=== PATIENT | female | born 1935 | race Two or more races ===

== ENCOUNTER 2024-06-11 09:39 | Inpatient (IN) | payer MEDICARE, MEDICAID, SELFPAY ==
[2024-06-11] VITALS (21 sets, daily range): BP systolic 170–201; BP diastolic 61–98; PULSE 37–70; RESP 12–20; TEMP 36.2–37.2; O2SAT 92–100; BMI 22.2
--- NOTE | 2024-06-11 10:25 | PD.EDGIBLD ---
ED GI Bleed RME/HPI General Chief complaint: Abdominal Pain Stated complaint: bloody stools Time Seen by Provider: 06/11/24 09:51 Arrival date/time: 06/11/24 09:39 Limitations: no limitations RME / HPI RME / HPI Narrative: DR. GRAYSON MAIN ED EVALUATION: 89 year old female presents to the Emergency Department accompanied by the granddaughter with complaint of rectal bleeding at home intermittently for 1 week. Per granddaughter, the patient's daughter noticed the bleeding this morning and came for further evaluation. Per granddaughter, patient lives at home and they are next door neighbors. Associated symptoms include right-sided abdominal pain, lower back pain, and decreased appetite. PMHx: Parkinson's disease, hypothyroidism, hypertension, osteoporosis, hard of hearing, and dementia. On blood thinners for unknown reason at this time. Social Hx: No tobacco, alcohol, or substance use. PCP is at [facility]. Related Data Home Medications ?Medication ?Instructions ?Recorded ?Confirmed levothyroxine 25 mcg tablet 25 mcg PO QAM 01/15/18 06/18/21 carbidopa 25 mg-levodopa 100 mg 1 tab PO TID 01/02/19 06/18/21 tablet trazodone 100 mg tablet 100 mg PO HS PRN Insomnia 01/02/19 06/18/21 baclofen 5 mg tablet 5 mg PO BID PRN Pain 06/18/21 06/18/21 loratadine 10 mg tablet 10 mg PO QDAY PRN allergies 06/18/21 06/18/21 sertraline 150 mg capsule 150 mg PO QDAY 06/18/21 06/18/21 tramadol 50 mg tablet 50 mg PO BID PRN Pain 06/18/21 06/18/21 Allergies Allergy/AdvReac Type Severity Reaction Status Date / Time No Known Allergies Allergy Verified 06/18/21 09:51 Review of Systems Review of Systems Systems Reviewed: All systems reviewed, normal except as documented Narrative Review of Systems: GEN: No fever, no chills, no weight loss, + decreased appetite EYES: No discharge, no visual changes, no pain HEENT: No ear pain, no congestion, no sore throat PULM: No shortness of breath, no cough, no congestion CV: No chest pain, no dyspnea on exertion, no palpitations GI: No nausea, no vomiting, no diarrhea, + right-sided abdominal pain, no constipation; + rectal bleeding (see HPI) : No frequency, no urgency and no dysuria MUSC/SKEL: No joint pain, + lower back pain SKIN: No rash PSYCH: No hallucinations, no depression HEME/LYMPH: No easy bleeding or bruising tendencies NEURO: No weakness, no headache Past Medical History Past Medical History NEUROLOGIC: Positive Neurological Disorders and Parkinson's Disease CARDIAC: Positive Cardiac Disorders, Hypercholesterolemia and Hypertension RESPIRATORY: Positive Pneumonia GASTROINTESTINAL: Positive Gastrointestinal Disorders (GASTRITIS) MUSCULOSKELETAL: Positive Musculoskeletal Disorders (osteoarthritis) ENDOCRINE: Positive Endocrine Disorders and Hypothyroidism PSYCHO/SOCIAL: Positive Anxiety Surgical History SURGICAL: Positive Abdominal Surgery and Joint Replacement Social History SMOKING STATUS: Never smoker SUBSTANCE USE: does not use ALCOHOL: Never ED Exam General Limitations: Present no limitations General appearance: Present alert and in no apparent distress Head Head exam: Present atraumatic, normocephalic and normal inspection Eye Eye exam: Present normal appearance, PERRL and EOMI ENT ENT exam: Present normal exam, normal oropharynx and mucous membranes moist Neck Neck exam: Present normal inspection, full ROM and trachea midline Chest Chest inspection: Present normal inspection and symmetric chest wall rise Respiratory Respiratory exam: Present normal lung sounds bilaterally Cardiovascular Cardiovascular exam: Present regular rate, normal rhythm and normal heart sounds Abdominal Exam Abdominal exam: Present soft and normal bowel sounds; Absent tenderness, guarding, rebound or rigidity External exam: Present other (There is an external hemorrhoid at the anal verge that measures 1x1 cm that is slightly inflamed but no active bleed; no stools present.) Extremities Exam Extremities exam: Present normal inspection and full ROM Back Exam Back exam: Present normal inspection and full ROM Neurological Exam Neurological exam: Present alert Expanded Neurological Exam Patient oriented to: Present person Speech: Present fluid speech Skin Skin exam: Present warm, dry, intact and normal color Course Quality Measures none Orders Category Date Time Status COVID-19 Screening Questionnaire NOW Care 06/11/24 13:26 Active COVID-19 Screening Questionnaire NOW Care 06/11/24 18:15 Active Quality Assurance Group Leader STAT Care 06/11/24 10:43 Active Continuous Pulse Oximetry NOW Care 06/11/24 10:43 Active Decision to Admit X1 Care 06/11/24 18:15 Active EKG (ED ONLY) *Do not use* NOW Care 06/11/24 11:51 Completed Insert IV STAT Care 06/11/24 10:43 Active NPO NOW Care 06/11/24 10:43 Active Occult Blood,Stool (Nursing) ONCE Care 06/11/24 10:43 Active Consult to Cardiology Stat Cons 06/11/24 13:[address] abdomen pelvis wo con Stat Exams 06/11/24 10:45 Completed CXR [XR chest 1V] Stat Exams 06/11/24 16:08 Completed EKG (ED Only) Stat Exams 06/11/24 11:51 Draft BNP [B-Type Natriuretic Peptide] Stat Lab 06/11/24 13:19 Completed Blood Culture (Lab) Stat Lab 06/11/24 18:06 Ordered CBC Stat Lab 06/11/24 11:14 Completed COVID-19 Antigen (In-House) Stat Lab 06/11/24 Ordered Comprehensive Metabolic Panel Stat Lab 06/11/24 11:14 Completed Influenza A & B Rapid Panel Stat Lab 06/11/24 18:15 Ordered Partial Thromboplastin Time Stat Lab 06/11/24 11:14 Completed Prothrombin Time with INR Stat Lab 06/11/24 11:14 Completed Troponin I Stat Lab 06/11/24 13:19 Completed Urinalysis Stat Lab 06/11/24 16:09 Ordered Acetaminophen Ivpb [Ofirmev Inj] Med 06/11/24 16:49 Discontinued 1,000 mg in 100 ml IV X1 Albuterol/Ipratr Rt Arcelia [Duoneb Rt Arcelia] Med 06/11/24 16:45 Discontinued 3 ml INH X1 ONE Azithromycin Inj [Zithromax Inj] 500 mg Med 06/11/24 18:06 Ordered Sodium Chloride 0.9% 250 ml [Ns] 250 ml IV QDAY Sodium Chloride 0.9% 1000 ml [Ns] 1,000 ml Med 06/11/24 10:43 Discontinued IV 999 mls/hr cefTRIAXone [Rocephin] 2 gm Med 06/11/24 18:07 Ordered SODIUM CHLORIDE 0.9% (Popper) [Ns 0.9% (P)] 50 ml IV QDAY Reevaluation(s) Reevaluation #1: When the nurse was going to discharge the patient. Patient was satting at 85% on room air. Patient was on oxygen here and when taken off she was satting low. Will re-evaluate and cancer the discharge. Time: 16:01 Vital Signs Vital signs: Vital Signs Temperature 98.9 F 06/11/24 09:47 Pulse Rate 57 L 06/11/24 09:47 Respiratory Rate 17 06/11/24 09:47 Blood Pressure 201/73 H 06/11/24 09:47 Pulse Oximetry (%) 92 L 06/11/24 09:47 Oxygen Delivery Method Room Air 06/11/24 09:47 GI Bleed MDM Narrative MDM Narrative:: I, Laura King, am scribing for and in the presence of Dr. Grayson. Patient data External records reviewed:: EMS form Clinical information provided by:: patient, EMS and family (granddaughter) Social determinants that could affect healthcare access:: none Patient has the following chronic illnesses:: Parkinson's disease, hypothyroidism, hypertension, osteoporosis, hard of hearing, and dementia. On blood thinners for unknown reason at this time. How is presenting disease/condition affected by chronic disease/condition?: exacerbated by Evaluation data The following diagnostics were reviewed and interpreted by me:: lab results, radiology exam(s) and EKG tracing(s) Lab and/or radiology exams considered but not ordered:: none Interpretation Summary: EKG#1: EKG at 1154 hours. Interpreted by me: atrial fibrillation with slow ventricular response, rate 36, nonspecific ST-T wave abnormality, QRS duration 86 ms, QT/QTc 512/397, P-R-T axis blank, 21, and -18 RADIOLOGY Procedure(s): CT abdomen pelvis wo con Accession Number(s): [id number] cc: Maged Grayson MD; Sheri JiangC; Yordan Palacios MD~ Examination: CT abdomen and pelvis without contrast. Coronal 3-D reconstructions. Sagittal 2-D reconstructions. Date and time of exam:June 11, 2024 at 1128 hours Comparison June 19, 2021 INDICATIONS: Rectal bleeding today CTDI: vol (mGy): 10.1 DLP: (mGycm): 511 Technique: Axial images of the abdomen have been obtained, 3 mm slice thickness Intravenous contrast material has not been administered. Low dose protocols were performed. One or more of the following dose reduction techniques were used; automated exposure control, adjustment of the mA and/or KV according to patient size, use of iterative reconstruction technique. Findings: The lung bases with small pleural effusions No focal liver or splenic lesion Absent gallbladder No pancreatic mass No renal or ureteral calculi, no hydronephrosis Aorta normal size No pericecal inflammatory change No bowel obstruction No diverticulitis No colonic or rectal wall thickening No bladder mass or bladder calculi IMPRESSION: No renal or ureteral calculi, no hydronephrosis No CT findings of appendicitis bowel obstruction or diverticulitis Consider CTA abdomen pelvis post intravenous contrast follow-up, given the patient's presentation Dictated By: Yordan Palacios MD Medications / Prescriptions Medications or Prescriptions considered but not ordered:: none Medication administrations:: Medication Administration History Azithromycin 500 mg/ Sodium (Chloride) 250 mls @ 250 mls/hr IV QDAY MOE Stop: 06/18/24 18:05 Ceftriaxone Sodium 2 gm/ (Sodium Chloride) 50 mls @ 100 mls/hr IV QDAY MOE Stop: 06/18/24 18:06 Discontinued Medications Albuterol/Ipratropium (Albuterol/Ipratropium (Duoneb) Rt Arcelia 3 Ml Nebu) 3 ml INH X1 ONE Stop: 06/11/24 16:46 Last Admin: 06/11/24 17:29 Dose: 3 ml Documented By: JOSE Sodium Chloride (Ns) 1,000 mls @ 999 mls/hr IV .Q1H1M ONE Stop: 06/11/24 11:43 Last Infusion: 06/11/24 14:27 Dose: Infused Documented By: Admin: 06/11/24 12:22 Dose: 999 mls/hr Documented By: ZAK Acetaminophen (Ofirmev Inj) 1,000 mg in 100 mls @ 250 mls/hr IV X1 ONE Stop: 06/11/24 17:12 Last Infusion: 06/11/24 18:12 Dose: Infused Documented By: Admin: 06/11/24 17:10 Dose: 250 mls/hr Documented By: THO see above Consultations Consultation(s) initiated? (list below): Yes Consultation #1 (Physician, Specialty, Details): Discussed test HPI, PMHx, lab, radiology results and/or management with Dr. Chirinos. Dr. Chirinos thinks it is just a vagal episode that caused bradycardia and recommends discharge to follow as an outpatient. Time: 15:10 Consultation #2 (Physician, Specialty, Details): Discussed test HPI, PMHx, lab, radiology results and/or management with hospitalist. Will admit for further evaluation and management. Accepts patient for admission. Time: 18:05 Diagnosis GI bleed differential diagnosis: hemorrhoids, esophageal varices and gastritis Most likely diagnosis given after review of the tests above:: Rectal bleed External hemorrhoid Anemia Vagal episode with bradycardia, resolved. Hypoxia Admission Indicated Admission indicated?: indicated Admission Request Was there a request for admission?: Yes Admission Attestation Admission request attestation: Discussed case with [] from Hospitalist service regarding admission. Discussed patients ED course, exam findings, labs, and radiology results. The Hospitalist [agrees,declines] to accept the patient for admission. Disposition Plan Disposition Plan: Admit Discharge Plan Plan Patient Disposition: Admit Acute Care w/in Hospital Prescriptions/Referrals Prescriptions/Med Rec: No Action levothyroxine 25 mcg Tablet 25 mcg PO QAM trazodone 100 mg Tablet 100 mg PO HS PRN (Reason: Insomnia) carbidopa-levodopa 25-100 mg Tablet 1 tab PO TID tramadol 50 mg Tablet 50 mg PO BID PRN (Reason: Pain) loratadine 10 mg Tablet 10 mg PO QDAY PRN (Reason: allergies) baclofen 5 mg Tablet 5 mg PO BID PRN (Reason: Pain) sertraline 150 mg Capsule 150 mg PO QDAY Referrals: Sheri Jiang, [facility] [Primary Care Provider] - In 1 week Problem List Clinical Impression: Rectal bleed, External hemorrhoid, Anemia, Vagal bradycardia, Pneumonia, Hypoxia Patient/Caregiver Discharge Instructions Education Materials: ED Anemia Type Not Specified, ED Hemorrhoids Additional Instructions: Please follow-up with your primary care physician within a week. Return to the Emergency Department as needed. Ask your primary for a cardio consult and holter monitor for your bradycardia. Ashok un seguimiento con diez m?dico de cabecera dentro de jorge semana. Regrese al Departamento de Emergencias seg?n sea necesario. P?brendan a diez m?dico de cabecera que le ashok jorge consulta card?[place] y un monitor Holter para diez bradicardia. Print Language: Angolan Stand Alone Forms: Marisabel Award Info., Patient Portal Info Letter
--- NOTE | 2024-06-11 10:45 | XR_ITS ---
Examination: CT abdomen and pelvis without contrast. Coronal 3-D reconstructions. Sagittal 2-D reconstructions. Date and time of exam:June 11, 2024 at 1128 hours Comparison June 19, 2021 INDICATIONS: Rectal bleeding today CTDI: vol (mGy): 10.1 DLP: (mGycm): 511 Technique: Axial images of the abdomen have been obtained, 3 mm slice thickness Intravenous contrast material has not been administered. Low dose protocols were performed. One or more of the following dose reduction techniques were used; automated exposure control, adjustment of the mA and/or KV according to patient size, use of iterative reconstruction technique. Findings: The lung bases with small pleural effusions No focal liver or splenic lesion Absent gallbladder No pancreatic mass No renal or ureteral calculi, no hydronephrosis Aorta normal size No pericecal inflammatory change No bowel obstruction No diverticulitis No colonic or rectal wall thickening No bladder mass or bladder calculi IMPRESSION: No renal or ureteral calculi, no hydronephrosis No CT findings of appendicitis bowel obstruction or diverticulitis Consider CTA abdomen pelvis post intravenous contrast follow-up, given the patient's presentation
[2024-06-11 11:27] LABS: Basophils % (Auto) 1 % (0-2.5); Eosinophils # (Auto) 0.1 Thou/mm3 (0.0-0.5); Eosinophils % (Auto) 2 % (0-10); Hematocrit 37.2 % (36.0-46.0); Hemoglobin 11.9 g/dL (12.0-16.0); Immature Granulocytes % (Auto) 0 % (0-0); Immature Granulocytes Auto 0.01 Thou/mm3 (0.00-0.00); Lymphocytes # (Auto) 1.4 Thou/mm3 (1.0-4.8); Lymphocytes % (Auto) 24 % (10-50); Mean Corpuscular Hemoglobin 26.9 pg (25.0-35.0); Mean Corpuscular Volume 84 fL (80-100); Monocytes # (Auto) 0.4 Thou/mm3 (0.0-0.8); Monocytes % (Auto) 7 % (0-12); Neutrophils # (Auto) 3.9 Thou/mm3 (1.8-7.7); Neutrophils % (Auto) 67 % (37-80); Nucleated Red Blood Cell % 0 /100 WBC (0); Platelet Count 226 Thou/mm3 (140-440); RDW Standard Deviation 47.8 fL (36.4-46.3); Red Blood Count 4.42 Miln/mm3 (4.00-5.20); White Blood Count 5.8 Thou/mm3 (3.6-11.0)
[2024-06-11 11:46] LABS: Alanine Aminotransferase < 7 U/L (10-49); Albumin, Serum 4.1 gm/dL (3.4-4.8); Albumin/Globulin Ratio 1.5 (1.2-2.2); Alkaline Phosphatase 80 U/L (46-116); Anion Gap 5 (7-16); Aspartate Amino Transferase 30 U/L (0-34); BUN/Creatinine Ratio 18 Ratio (12-20); Bilirubin,Total 0.5 mg/dL (0.3-1.2); Blood Urea Nitrogen 11 mg/dL (9-23); Calcium 9.3 mg/dL (8.3-10.6); Calcium (Corrected) 9.3 mg/dL (8.5-10.1); Carbon Dioxide 30.7 mMol/L (20.0-31.0); Chloride 102 mMol/L (98-107); Creatinine (Component) 0.6 mg/dL (0.6-1.3); Estimated Creatinine Clearance 53.6 mL/min (>60); Globulin 2.8 gm/dL (2.3-3.5); Glucose 126 mg/dL (74-106); INR 1.1 (0.9-1.3); Osmolality,Calculated 277 (275-295); Partial Thromboplastin Time 26.3 Seconds (22.0-36.0); Potassium 3.5 mMol/L (3.4-5.1); Prothrombin Time 12.1 Seconds (9.0-12.2); Sodium 138 mMol/L (136-145); Total Protein 6.9 gm/dL (5.7-8.2); eGFR > 60 See Note
--- NOTE | 2024-06-11 11:51 | EKG_ITS ---
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
--- NOTE | 2024-06-11 12:16 | PC.NURSE ---
pT WAS PLACED ON PADS PER DR GRAYSON REQUEST PT HR DROPPED TO HR 33 CARDIALOGY CONSULT WILL BE ORDERED DAUGHTER AT BEDSIDE MADE AWARE OF UPDATED POC AND VERBALIZED UNDERSTANDING WITH THIS MIGRATORY WORKER AN INTREPETER
[2024-06-11] MEDS: SODIUM CHLORIDE 0.9% 1000 ML 1,000 ML 999 ML IV (12:22)
[2024-06-11 14:03] LABS: B-Type Natriuretic Peptide 198 pg/mL (0-100)
[2024-06-11 14:04] LABS: Troponin I < 0.020 ng/mL (0.0-0.045)
--- NOTE | 2024-06-11 14:39 | ESCONSULT_ITS ---
<Statement entered by Yisel Chirinos MD - 06/13/24 18:10> The patient is personally evaluated by me in the emergency room along with resident physician PGY 2 Dr. Rody Dunn MD agree with the treatment plan recommendation patient has bradycardia but asymptomatic and appears to be on low-dose beta-estevan which should be discontinued she has A-fib with slower heart rate may be sick sinus syndrome but if she has significant bradycardia symptomatic may require pacemaker implantation by . Very much evaluate the patient with resident physician will continue to monitor the patient HPI Data of Consult Primary Care Provider: HARRIET Coyle Consult Narrative Reason for consult: Severe bradycardia History of present illness: Patient is a 89-year-old Cuban-speaking [id number] female with past medical history of right acoustic neurinoma, Parkinson's disease, hypothyroidism, hypertension, hyperlipidemia, gastritis, osteoporosis, and dementia who presented to the ED on 06/11/2024 with concern of bright red blood in the stools for the past 3 days and abdominal pain. History provided by granddaughter at the bedside as patient is unable to reliably answer questions due to dementia. Patient is able to read lips sometimes and read simple writing in Cuban. Patient is on Eliquis 5 mg once daily, was previously on 5 mg BID but was reduced by PCP due to rectal bleeding. It is unknown why patient is on anticoagulant, granddaughter mentions clot in the head but unclear whether this is related to the neuroma or a stroke-like event. Patient was never on aspirin or Plavix. Patient is endorsing right-sided abdominal pain and lower back pain. Patient does have a history of hemorrhoids which have intermittent bleeding. Family noted she has also had reduced appetite over the last few days only drinking Pedialyte and increased weakness, normally patient is ambulatory but over the last few days she was unable to get up from sitting by herself. She lives at home with her and daughter lives next door. Per granddaughter patient was found to have low HR at the [facility] where she follows for primary care and had been referred to a platen press feeder but has not seen one yet. ED Course: -Initial vitals were BP 201/73, HR 57, RR 17, Temp 98.9, O2 92% on room air -EKG showed bradycardia at a rate of 36 -Abdomen/pelvis CT without contrast showed no acute findings -Labs significant for normocytic anemia 11.9, troponin <0.020, BNP 198 -In the ED, patient was given 1L NS IVF, pacing pads were also placed on patient in case need of pacing -Cardiology was consulted for severe bradycardia Review of Systems Review of systems otherwise negative except what is mentioned above. cc:: cc: Past Medical History Past Medical History Comments PMH COMMENT: Past Medical History: Right acoustic neurinoma, Parkinson's disease, hypothyroidism, hypertension, hyperlipidemia, gastritis, osteoporosis, and dementia Family History: Family history of cancer and diabetes, sister passed from [place] Surgical History: Cholecystectomy, right knee surgery, esophageal ring s/p dilation 2018 Social History: Denies history of smoking, denies current alcohol use, denies recreational drug use. Patient lives at home with . Daughter's family lives next door. Current Medications: Eliquis 5 mg once qday, metoprolol 12.5 mg qday, levothyroxine 25 mcg qday, carbadopa-levodopa 25-100 mg TID, losartan 100 mg qday, atorvastatin 80 mg HS, oxybutynin 5 mg qday, sertraline 50 mg qday, trazodone 100 mg HS, quetiapine 25 mg HS, hydrocodone-acetaminophen 5-325 mg BID prn pain (Source: Bedside medication bottles) Allergies: No known drug allergies Exam Vital Signs Temp Pulse Resp BP Pulse Ox O2 Del Method O2 Flow Rate 98 F 40 L 18 176/98 H 100 Nasal Cannula 6 06/11/24 10:45 06/11/24 10:45 06/11/24 10:45 06/11/24 10:45 06/11/24 10:45 06/11/24 10:45 06/11/24 10:45 Narrative Exam Physical Exam General: Elderly female, awake and in no acute distress, non-toxic appearing. Unable to hear, but vocalizing in Cuban. Answers simple questions written on paper. HEENT: Normocephalic, atraumatic, mucous membranes moist. On 2L NC. Heart: Bradycardic rate and irregular rhythm, normal S1 and S2, no murmurs. Lungs: Clear to auscultation with no wheezing or crackles. Abdomen: Soft, nondistended, tenderness to palpation right abdomen however refusing further examination. Neurologic: Oriented to self, no gross neurological deficit, and patient able to move all 4 extremities. Extremities: No edema. Skin: No rash or ecchymoses. Results Labs 06/11/24 11:14 06/11/24 11:14 Labs: Short CBC 06/11/24 Range/Units 11:14 WBC 5.8 (3.6-11.0) Thou/mm3 Hgb 11.9 L (12.0-16.0) g/dL Hct 37.2 (36.0-46.0) % Plt Count 226 (140-440) Thou/mm3 BMP 06/11/24 11:14 Sodium 138 Potassium 3.5 Chloride 102 Carbon Dioxide 30.7 BUN 11 Creatinine 0.6 Glucose 126 H Calcium 9.3 Cardiac Enzymes 06/11/24 Range/Units 13:19 Troponin I < 0.020 (0.0-0.045) ng/mL Liver Function 06/11/24 Range/Units 11:14 Total Bilirubin 0.5 (0.3-1.2) mg/dL AST 30 (0-34) U/L ALT < 7 L (10-49) U/L Alkaline Phosphatase 80 (46-116) U/L Albumin 4.1 (3.4-4.8) gm/dL Quality Measures Quality Measures none Advance care planning discussed with:: patient and child Medications Home Medications and Allergies Home Medications ?Medication ?Instructions ?Recorded ?Confirmed ?Type levothyroxine 25 mcg tablet 25 mcg PO QAM 01/15/18 History carbidopa 25 mg-levodopa 100 mg 1 tab PO TID 01/02/19 06/18/21 History tablet trazodone 100 mg tablet 100 mg PO HS PRN Insomnia 06/18/21 History baclofen 5 mg tablet 5 mg PO BID PRN Pain 2 06/18/21 History loratadine 10 mg tablet 10 mg PO QDAY PRN allergies 06/18/21 06/18/21 History sertraline 150 mg capsule 150 mg PO QDAY 06/18/2105/23 History tramadol 50 mg tablet 50 mg PO BID PRN Pain 06/18/21 History Allergies Allergy/AdvReac Type Severity Reaction Status Date / Time No Known Allergies Allergy Verified 06/18/21 09:51 Visit Medications Discontinued Medications Sodium Chloride (Ns) 1,000 mls @ 999 mls/hr IV .Q1H1M ONE Stop: 06/11/24 11:43 Last Infusion: 06/11/24 14:27 Dose: Infused Assessment & Plan Plan 89-year-old Cuban-speaking [id number] female with past medical history of right acoustic neurinoma, Parkinson's disease, hypothyroidism, hypertension, hyperlipidemia, gastritis, osteoporosis, and dementia who presented to the ED on 06/11/2024 with concern of bloody stools for the past 3 days and abdominal pain. In the ED patient was found to have severe bradycardia and Cardiology was consulted for further management. #Severe bradycardia Patient found in the ED to have bradycardia as low as 33. EKG showed afib with slow ventricular response. BP remained stable, patient is hypertensive. Troponin negative. BNP mildly elevated at 198. Patient is not on O2 and does appear to be requiring 2L O2. Differentials include vasovagal versus sick sinus syndrome versus beta-estevan overdose. At this time pacing and pacemaker is not indicated as the patient is not symptomatic from the bradycardia. -Hold home metoprolol 12.5 mg qday -Hold Eliquis due to recent concern of rectal bleeding -Patient may be discharged from a cardiac standpoint, following with cardiology appointment as scheduled -Consider CXR, TSH for workup Rest of conditions to continue current management per primary team: #Lower GI bleed, possibly from hemorrhoids #History of Parkinson's disease #History of hypothyroidism #History of hypertension #History of hyperlipidemia Patient was discussed with the Cardiology attending, Dr. Chirinos. Thank you for allowing us to participate in the care of this patient. Brigida Dunn, PGY-2
--- NOTE | 2024-06-11 15:59 | PC.NURSE ---
PT WAS PLACED ON RA TO GET DRESSED FOR DISCHARGED AND THIS BOTTOM MAN NOTED PT OXYGEN SATURATIONS DECREASED TO 79% ON RA MD NOTIFIED AND ADDITIONAL ORDERS RECEIVED
--- NOTE | 2024-06-11 16:08 | XR_ITS ---
Examination: AP chest single view Technique: AP portable upright chest single view Exam date and time: June 11, 2024 1624 hrs. Comparison June 10, 2021 Indication: Chest pain shortness of breath today Findings: Early pneumonia at the lung bases Mild prominence of ventricle Ectatic thoracic aorta Prominent osteopenia Impression: Early bibasilar pneumonia
[2024-06-11] MEDS: ACETAMINOPHEN IVPB 1,000 MG/100 ML VIAL 250 MG IV (17:10)
[2024-06-11] MEDS: ALBUTEROL/IPRATROPIUM (Duoneb) RT SOL 3 ML NEBU INH (17:29)
--- NOTE | 2024-06-11 18:38 | EVENTNT_ITS ---
Documentation for date of: 06/11/24 Event Note Event Note: Miss Kim a 89-year-old Bruneian-speaking [id number] female with significant medical history of right acoustic neurinoma, Parkinson's disease, hypothyroidism, hypertension, hyperlipidemia, gastritis, osteoporosis, and dem entia who presented to the ED with concern of bright red blood in the stools for the past 3 days and abdominal pain. Patient is taking Eliquis, most likely due for Afib, she is also on Metoprolol. ED lab indicated stable HgB, occult was negative per ED. Vitals were significant for BP 201/73, trops negative, BNP 198. EKG indicative of Afib. Abdomen/pelvis CT was unremarkable, chest X-ray showed early bibasilar pneumonia. Patient had and episode of syncope in ED and cardiology was consulted. Per cardio, patient had vasovagal syncope and required outpatient follow-up. Patient was to be discharged but was found to be hypoxic, requiring 3L of O2 to maintain mid-90's saturation. Primary team examined the patient in ED, we will let night team know. We recommend, DuoNebs, IV Rocephin, IV Azithro, withholding beta-estevan in setting of bradycardia, Echocardiogram (last report 2021 with EF 50-55%), TSH, restart home BP meds, Hydralazine IV PRN for SBP > 170. Gutierrez Leigh PGY-2
[2024-06-11] MEDS: cefTRIAXone 2 GM in SODIUM CHLORIDE 0.9% (Popper) 50 ML IV (18:41)
--- NOTE | 2024-06-11 20:20 | PD.RESHP ---
Documentation for date of: 06/11/24 [facility] History of Present Illness Chief complaint: blood in the stool History of present illness: The patient is a 89 year old female with previous medical history of right acoustic neurinoma, Parkinson's disease, hypothyroidism, hypertension, hyperlipidemia, gastritis, osteoporosis, and dementia who was brought to the ED on 06/11/2024 due to abdmoninal pain, bright red blood in her stool. Communication was performed using [facility] branch coordinator. Her daughter at the bedside, reports that a few days ago patient started to have abdominal pain, bright red blood in the stool, general weakness, loss of appetite. They went to the PCP and were sent to the ED due to bradycardia. In the ED: BP 201/73, HR 57, afebrile, saturating 92% on room air. Labs showed WBC count of 5.8, Hgb 11.9, Hct 37.2, Platelet 226, INR 1.1, sodium 138, potassium 3.5, BUN 11, creatinine 0.6, glucose 126, AST 30, ALT less than 7, alkaline phosphatase 80, BNP 198. Abdomen pelvis CT was negative for appendicitis, bowel obstruction or diverticulitis, negative for nephrolithiasis. Chest x-ray showed early bibasilar pneumonia. In the ED patient had heart rate of 36, recorded on EKG. Gang Rider Dr. Chirinos was consulted, recommended to hold metoprolol and Eliquis. Patient was about to be discharged from the ED, but desatted to 79% on room air, was placed on oxygen through the nasal cannula 2 L, saturation went up to 98%. Due to patient's dimension and hearing loss it is hard to take history, family mostly communicates with her using writing. When asked writing it the patient feels dizziness, patient was not able to answer. Social history: Lives with her family, usually able to ambulate slowly using walker. Denies history of smoking, alcohol use, recreational drug use. Surgical history: Cholecystectomy, right knee surgery, esophageal ring status post dilatation in 2019. Medications: Eliquis 5 mg daily, metoprolol 12.5 daily, levothyroxine 25 mcg daily, carbidopa-levodopa 25-100 mg 3 times daily, losartan 100 mg daily, atorvastatin 80 mg at bedtime, oxybutynin 5 mg daily, sertraline 50 mg daily, trazodone 100 mg at bedtime, quetiapine 25 mg at bedtime, hydrocodone?acetaminophen 5-325 mg twice daily as needed for pain. Patient is going to be admitted for severe bradycardia and community-acquired pneumonia. Review of Systems Review of Systems ROS Unobtainable: unobtainable due to mental status (dementia) Exam Vital Signs Temp Pulse Resp BP Pulse Ox O2 Del Method O2 Flow Rate 98.0 F 44 L 16 184/61 H 97 Nasal Cannula 2 06/11/24 18:19 06/11/24 18:19 06/11/24 18:19 06/11/24 18:19 06/11/24 18:19 06/11/24 18:19 06/11/24 18:19 Narrative Exam Physical Exam General: Awake and in no acute distress. Non-toxic appearing. Communicates in writing, but able to speak, vocalizing and localizing pain. HEENT: Normocephalic, atraumatic, mucous membranes moist. Heart: Regular rate and rhythm, no murmurs, bradycardia. Lungs: Clear to auscultation with no wheezing or crackles. Abdomen: Soft, nondistended, mild lower abdominal tenderness, positive bowel sounds. ?No guarding or rebound tenderness. Neurologic: Alert, no gross neurological deficit, and patient able to move all 4 extremities. Extremities: No edema. Skin: No rash or ecchymoses. Results: Labs 06/11/24 11:14 06/11/24 11:14 Labs: Short CBC 06/11/24 Range/Units 11:14 WBC 5.8 (3.6-11.0) Thou/mm3 Hgb 11.9 L (12.0-16.0) g/dL Hct 37.2 (36.0-46.0) % Plt Count 226 (140-440) Thou/mm3 BMP 06/11/24 11:14 Sodium 138 Potassium 3.5 Chloride 102 Carbon Dioxide 30.7 BUN 11 Creatinine 0.6 Glucose 126 H Calcium 9.3 Cardiac Enzymes 06/11/24 Range/Units 13:19 Troponin I < 0.020 (0.0-0.045) ng/mL Liver Function 06/11/24 Range/Units 11:14 Total Bilirubin 0.5 (0.3-1.2) mg/dL AST 30 (0-34) U/L ALT < 7 L (10-49) U/L Alkaline Phosphatase 80 (46-116) U/L Albumin 4.1 (3.4-4.8) gm/dL Quality Measures Quality Measures VTE prophylaxis (SCDs) Advance care planning discussed with:: child Medications Home Medications and Allergies Home Medications ?Medication ?Instructions ?Recorded ?Confirmed ?Type levothyroxine 25 mcg tablet 25 mcg PO QAM 01/15/18 06/18/21 History carbidopa 25 mg-levodopa 100 mg 1 tab PO TID 01/02/19 06/18/21 History tablet trazodone 100 mg tablet 100 mg PO HS PRN Insomnia 01/02/19 06/18/21 History baclofen 5 mg tablet 5 mg PO BID PRN Pain 06/18/21 06/18/21 History loratadine 10 mg tablet 10 mg PO QDAY PRN allergies 06/18/21 06/18/21 History sertraline 150 mg capsule 150 mg PO QDAY 06/18/21 06/18/21 History tramadol 50 mg tablet 50 mg PO BID PRN Pain 06/18/21 06/18/21 History Allergies Allergy/AdvReac Type Severity Reaction Status Date / Time No Known Allergies Allergy Verified 06/18/21 09:51 Visit Medications Acetaminophen (Acetaminophen 325 Mg Tablet) 650 mg PO Q6H PRN PRN Reason: Fever >100.3 or pain 1-3 Stop: 07/11/24 20:07 Albuterol/Ipratropium (Albuterol/Ipratropium (Duoneb) Rt Arcelia 3 Ml Nebu) 3 ml INH Q2HR PRN PRN Reason: SHORTNESS OF BREATH OR WHEEZE Stop: 07/11/24 20:07 Carbidopa/Levodopa (Carbidopa/Levodopa 25/100 Mg Tablet) 1 tab PO TID MOE Stop: 07/11/24 21:59 Azithromycin 500 mg/ Sodium (Chloride) 250 mls @ 250 mls/hr IV QDAY@1400 MOE Stop: 06/19/24 13:59 Ceftriaxone Sodium/Dextrose (Rocephin/D5w 1gm Iv Premix) 1 gm in 50 mls @ 100 mls/hr IV QDAY@1400 [facility] Stop: 06/19/24 13:59 Ondansetron HCl (Ondansetron Inj 2 Mg/Ml Inj 2 Ml) 4 mg IV Q6H PRN; Protocol PRN Reason: NAUSEA OR VOMITING Stop: 07/11/24 20:07 Sennosides (Senna Tablet) 1 tab PO QDAY PRN; Protocol PRN Reason: constipation Stop: 07/11/24 20:07 Sertraline HCl (Sertraline Hcl 25 Mg Tablet) 50 mg PO HS MOE Stop: 07/11/24 20:59 Discontinued Medications Albuterol/Ipratropium (Albuterol/Ipratropium (Duoneb) Rt Arcelia 3 Ml Nebu) 3 ml INH X1 ONE Stop: 06/11/24 16:46 Last Admin: 06/11/24 17:29 Dose: 3 ml Sodium Chloride (Ns) 1,000 mls @ 999 mls/hr IV .Q1H1M ONE Stop: 06/11/24 11:43 Last Infusion: 06/11/24 14:27 Dose: Infused Acetaminophen (Ofirmev Inj) 1,000 mg in 100 mls @ 250 mls/hr IV X1 ONE Stop: 06/11/24 17:12 Last Infusion: 06/11/24 18:12 Dose: Infused Ceftriaxone Sodium 2 gm/ (Sodium Chloride) 50 mls @ 100 mls/hr IV QDAY@1400 MOE Stop: 06/18/24 18:06 Last Admin: 06/11/24 18:41 Dose: 100 mls/hr Azithromycin 500 mg/ Sodium (Chloride) 250 mls @ 250 mls/hr IV X1 ONE Stop: 06/11/24 19:44 Azithromycin 500 mg/ Sodium (Chloride) 250 mls @ 250 mls/hr IV QDAY MOE Stop: 06/19/24 17:59 Assessment & Plan Plan The patient is a 89 year old female with previous medical history of right acoustic neurinoma, Parkinson's disease, hypothyroidism, hypertension, hyperlipidemia, gastritis, osteoporosis, and dementia who was brought to the ED on 06/11/2024 due to abdominal pain, bright red blood in her stool. Her daughter at the bedside, reports that a few days ago patient started to have abdominal pain, bright red blood in the stool, general weakness, loss of appetite. Patient is going to be admitted for severe bradycardia and community-acquired pneumonia. #Severe bradycardia Bradycardia was recorded at the PCP office and patient was sent to the ED, due to cognitive deficit it is hard to say if the patient experiences the symptoms. According to the ED personnel, patient had an episode of syncope. Cardiology was consulted, recommendations appreciated. Ddx: Sick sinus syndrome versus medication induced bradycardia vs vasovagal syncope Plan: ? Hold home metoprolol ? Hold Home Eliquis ? Telemetry ? TSH ordered - cardiology is following, appreciate recommendations #Lower GI bleed Patient's daughter reports that patient has been having bright red stools in the last few days has been reporting abdominal pain. On examination there is tenderness in the lower abdomen. CT abdomen pelvis was negative for acute pathology. Could be due hemorrhoidal bleeding. Plan: ? Home Eliquis on hold ? GI specialist Dr. Villegas is consulted ? Monitor CBC #Community-acquired pneumonia According to the daughter, patient has been having productive cough for a few days. CXR positive for early bibasilar pneumonia. Plan: ? Ceftriaxone 1 g daily ? Azithromycin 500 mg daily ? Oxygen supplementation as needed #History of Parkinson's disease Plan: ? Resume home carbidopa-levodopa #History of dementia #History of depression Plan: - resumed home sertraline #History of hypertension Plan: - will hold off BP management in the setting of bradycardia #Hypothyroidism Plan: ? Resumed home levothyroxine Health maintenance: FEN: cardiac diet DVT prophylaxis: SCDs GI prophylaxis: none Dispo: telemetry CODE STATUS: DNR (according to the family, they want to let her pass peacefully in the event of cardiac arrest) Plan of care discussed with attending Dr. Barney. Mare Waters MD, PGY 1. Attending Provider Attestation/Addendum I have examined the patient, reviewed labs and imaging findings, discussed the case with the resident(s), and reviewed entered orders. I agree with the plan of care as outlined in this note, with these additional summaries/recommendations: Patient is a 89-year-old female with a medical history of Parkinson's disease, hypothyroidism, primary hypertension, A-fib on Eliquis, osteoporosis, deafness, and hyperlipidemia who presents to [facility] emergency department on 06/11/2024 with chief complaint of rectal bleeding for 1 week. Patient and daughter seen at bedside. Per chart review patient had syncopal episode in the emergency room. Etiology vasovagal versus bradycardia from sick sinus syndrome versus medication induced from beta-blockers versus autonomic dysfunction from underlying Parkinson's disease.. While evaluating the patient in the ED heart rate dropped down to 38. Chart review shows heart rate was as low as 33 earlier. Given that patient had syncopal episode and is still bradycardiac we will admit patient to hospital. Admit to telemetry and order echocardiogram. Order TSH and troponin within normal limits. If patient becomes unstable we will try atropine -> dopamine versus epinephrine -> transcutaneous pacing -> transvenous pacing. We will allow permissive hypertension for now as likely compensating for bradycardia. Patient also endorsed rectal bleeding on admission which does seem relatively mild. Hemoglobin currently stable at 11.9. Consult gastroenterology, recommendations appreciated. Resume home atorvastatin, carbidopa levodopa, Seroquel, levothyroxine, sertraline, and trazodone. Hold home Eliquis for chronic atrial fibrillation in the setting of GI bleeding. Hold antihypertensive for now. Chest x-ray shows bibasilar pneumonia although no productive cough. Patient and daughter updated on the plan and in agreement. All questions answered to satisfaction. Please see residents note for additional details and management. Dr. Savita MD
[2024-06-11] MEDS: AZITHROMYCIN INJ 500 MG in SODIUM CHLORIDE 0.9% 250 ML 250 ML 250 MG IV (20:22)
[2024-06-11] MEDS: CARBIDOPA/LEVODOPA 25/100 MG TABLET 1 TAB PO (22:53)
[2024-06-11] MEDS: SERTRALINE HCL 25 MG TABLET 50 MG PO (22:53)
[2024-06-12] VITALS (12 sets, daily range): BP systolic 171–197; BP diastolic 51–95; PULSE 45–83; RESP 15–24; TEMP 35.9–36.9; O2SAT 94–99; BMI 26.1; BMI 11.0
--- NOTE | 2024-06-12 00:27 | PC.NURSE ---
Dr. Linda notified of elevated blood pressure and bradycardia 30s and 40s, asymptomatic. She stated they decided to not treat the BP due to the low heart rate and to let her know if SBP is great than 180. She stated to continue to monitor.
--- NOTE | 2024-06-12 05:04 | PC.NURSE ---
Addendum entered by Dudley Chin RN 06/12/24 05:07: Dr. Linda called me back asking me to recheck BP in 15 minutes. Original Note: Dr. Linda notified of patient blood pressure 197/95 with HR 60. She stated to continue to monitor.
[2024-06-12] MEDS: hydrALAZINE INJ 20 MG/ML VIAL 10 MG IV (06:12)
--- NOTE | 2024-06-12 06:46 | PC.NURSE ---
Dr. Linda initiated soft wrist restraints.
--- NOTE | 2024-06-12 08:46 | PC.SS ---
Update: Patient continuing to receive IV antibiotics to address infection. Weaning 02 requirements.
[2024-06-12] MEDS: PNEUMOC 20-VAL CONJ-DIP CRM/PF 0.5 ML SYRINGE IMi (08:48)
[2024-06-12 08:52] LABS: Basophils % (Auto) 0 % (0-2.5); Eosinophils % (Auto) 0 % (0-10); Hematocrit 40.3 % (36.0-46.0); Hemoglobin 12.9 g/dL (12.0-16.0); Immature Granulocytes % (Auto) 0 % (0-0); Immature Granulocytes Auto 0.02 Thou/mm3 (0.00-0.00); Lymphocytes # (Auto) 0.9 Thou/mm3 (1.0-4.8); Lymphocytes % (Auto) 11 % (10-50); Mean Corpuscular Hemoglobin 26.9 pg (25.0-35.0); Mean Corpuscular Volume 84 fL (80-100); Monocytes # (Auto) 0.3 Thou/mm3 (0.0-0.8); Monocytes % (Auto) 4 % (0-12); Neutrophils # (Auto) 6.9 Thou/mm3 (1.8-7.7); Neutrophils % (Auto) 85 % (37-80); Nucleated Red Blood Cell % 0 /100 WBC (0); Platelet Count 237 Thou/mm3 (140-440); RDW Standard Deviation 46.4 fL (36.4-46.3); White Blood Count 8.2 Thou/mm3 (3.6-11.0)
[2024-06-12 10:00] LABS: Alanine Aminotransferase 8 U/L (10-49); Albumin, Serum 4.3 gm/dL (3.4-4.8); Albumin/Globulin Ratio 1.5 (1.2-2.2); Alkaline Phosphatase 93 U/L (46-116); Anion Gap 11 (7-16); Aspartate Amino Transferase 34 U/L (0-34); BUN/Creatinine Ratio 14 Ratio (12-20); Bilirubin,Total 0.6 mg/dL (0.3-1.2); Blood Urea Nitrogen 7 mg/dL (9-23); Calcium 9.3 mg/dL (8.3-10.6); Calcium (Corrected) 9.3 mg/dL (8.5-10.1); Carbon Dioxide 22.7 mMol/L (20.0-31.0); Chloride 104 mMol/L (98-107); Creatinine (Component) 0.5 mg/dL (0.6-1.3); Estimated Creatinine Clearance 71.5 mL/min (>60); Globulin 2.8 gm/dL (2.3-3.5); Glucose 138 mg/dL (74-106); Magnesium 1.8 mg/dL (1.6-2.6); Osmolality,Calculated 275 (275-295); Phosphorous 2.1 mg/dL (2.4-5.1); Potassium 3.2 mMol/L (3.4-5.1); Sodium 138 mMol/L (136-145); Thyroid Stimulating Hormone 0.98 uIU/mL (0.55-4.78); Total Protein 7.1 gm/dL (5.7-8.2); eGFR > 60 See Note
[2024-06-12] MEDS: POT PHOS 15 mMol in NS 250 ML 15 MMOL/250 ML BAG 62.5 MMOL IV (13:04)
[2024-06-12] MEDS: POTASSIUM CHLORIDE 10% 20 MEQ/15 ML UDC 40 MEQ PO (13:04)
--- NOTE | 2024-06-12 13:20 | ESPR_ITS ---
<Statement entered by Yisel Chirinos MD - 06/13/24 18:11> I personally examined evaluated the patient along with resident physician PGY 3 Dr. Flaquito hogue's bradycardia appears to have resolved completely now appears to have GI problems undergoing GI workup patient is not exhibiting any any tachycardia or bradycardia arrhythmias so far. Will continue to monitor the patient for now because of GI bleeding anticoagulation is somewhat contraindicated for now. Documentation for date of: 06/12/24 Subjective Subjective Interval history: Patient seen and examined. No overnight events. Denies any pain. Tolerated PO intake. Tele monitor showed sinus rhythm with HR 70s. Getting worked up for GI bleed. Exam Vital Signs Temp Pulse Resp BP Pulse Ox O2 Del Method O2 Flow Rate 97.0 F 72 24 H 171/81 H 94 L Nasal Cannula 2 06/12/24 12:00 06/12/24 12:00 06/12/24 12:00 06/12/24 12:00 06/12/24 12:00 06/12/24 12:00 06/12/24 12:00 Narrative Exam Physical Exam General: Elderly female, awake and in no acute distress, non-toxic appearing. Unable to hear, but vocalizing in [place]. Answers simple questions written on paper. HEENT: Normocephalic, atraumatic, mucous membranes moist. On 2L NC. Heart: RRR, normal S1 and S2, no murmurs. Lungs: Clear to auscultation with no wheezing or crackles. Abdomen: Soft, nondistended, tenderness to palpation right abdomen however refusing further examination. Neurologic: Oriented to self, no gross neurological deficit, and patient able to move all 4 extremities. Extremities: No edema. Skin: No rash or ecchymoses. Objective Labs 06/12/24 08:15 06/12/24 08:15 Labs: Laboratory Results - last 24 hr 06/11/24 06/12/24 13:19 08:15 WBC 8.2 D RBC 4.80 Hgb 12.9 Hct 40.3 MCV 84 MCH 26.9 MCHC 32.0 RDW Std Deviation 46.4 H Plt Count 237 Neut % (Auto) 85 H Lymph % (Auto) 11 [place] % (Auto) 4 Eos % (Auto) 0 Baso % (Auto) 0 Neut # (Auto) 6.9 Lymph # (Auto) 0.9 L [place] # (Auto) 0.3 Eos # (Auto) 0.0 Baso # (Auto) 0.0 Immature Gran # (Auto) 0.02 H Absolute Nucleated RBC 0.00 Immature Gran % 0 Nucleated RBC % 0 Sodium 138 Potassium 3.2 L Chloride 104 Carbon Dioxide 22.7 Anion Gap 11 BUN 7 L Creatinine 0.5 L Estim Creat Clear Calc 71.5 eGFR > 60 BUN/Creatinine Ratio 14 Glucose 138 H Calculated Osmolality 275 Calcium 9.3 Corrected Calcium 9.3 Phosphorus 2.1 L Magnesium 1.8 Total Bilirubin 0.6 AST 34 ALT 8 L Alkaline Phosphatase 93 Troponin I < 0.020 B-Natriuretic Peptide 198 H Total Protein 7.1 Albumin 4.3 Globulin 2.8 Albumin/Globulin Ratio 1.5 TSH 0.98 Quality Measures Quality Measures VTE prophylaxis (SCDs) Advance care planning discussed with:: patient and child Assessment & Plan Assessment Current Active Medications: Generic Name Dose Route Start Last Admin Trade Name Freq PRN Reason Stop Dose Admin Acetaminophen 650 mg 06/11/24 20:08 Acetaminophen 325 Mg Tablet PO 07/11/24 20:07 Q6H PRN Fever >100.3 or pain 1-3 Albuterol/Ipratropium 3 ml 06/11/24 20:08 Albuterol/Ipratropium (Duoneb) Rt Arcelia 3 Ml Nebu INH 07/11/24 20:07 Q2HR PRN SHORTNESS OF BREATH OR WHEEZE Carbidopa/Levodopa 1 tab 06/11/24 22:00 06/12/24 05:41 Carbidopa/Levodopa 25/100 Mg Tablet PO 07/11/24 21:59 Not Given TID MOE Hydroxyzine HCl 50 mg 06/12/24 12:39 Hydroxyzine Hcl 25 Mg Tablet PO 07/12/24 12:44 BID PRN ANXIETY Azithromycin 500 mg/ Sodium 250 mls @ 250 mls/hr 06/12/24 21:00 Chloride IV 06/19/24 20:59 HS MOE Ceftriaxone Sodium/Dextrose 1 gm in 50 mls @ 100 mls/hr 06/12/24 14:00 Rocephin/D5w 1gm Iv Premix IV 06/19/24 13:59 QDAY@1400 MOE Magnesium Sulfate 4 gm in 50 mls @ 12.5 mls/hr 06/12/24 12:34 Magnesium Sulfate Ivpb IV 06/12/24 16:33 X1 ONE Potassium Phosphate 15 mmol in 250 mls @ 62.5 mls/hr 06/12/24 12:34 06/12/24 13:04 Pot Phos 15 Mmol In Ns 250 Ml IV 06/12/24 16:33 62.5 mls/hr X1 ONE Administration Levothyroxine Sodium 25 mcg 06/12/24 06:00 06/12/24 05:41 Levothyroxine Sodium 25 Mcg Tablet PO 07/12/24 05:59 Not Given ACBR [facility] Ondansetron HCl 4 mg 06/11/24 20:08 Ondansetron Inj 2 Mg/Ml Inj 2 Ml IV 07/11/24 20:07 Q6H PRN NAUSEA OR VOMITING Protocol Pantoprazole Sodium 40 mg 06/12/24 12:45 Pantoprazole Inj 40 Mg Vial IV 07/12/24 12:44 BID [facility] Pharmacy Consult 1 each 06/11/24 22:38 Pharmacy To Consult Patient XX 07/11/24 22:37 PRN PRN CONSULT Pharmacy Consult 1 each 06/11/24 22:38 Pharmacy To Consult Pneumovacc XX 07/11/24 22:37 PRN PRN CONSULT Sennosides 1 tab 06/11/24 20:08 Senna Tablet PO 07/11/24 20:07 QDAY PRN constipation Protocol Sertraline HCl 50 mg 06/11/24 21:00 06/11/24 22:53 Sertraline Hcl 25 Mg Tablet PO 07/11/24 20:59 50 mg HS [facility] Administration Plan 89-year-old Honduran-speaking [id number] female with past medical history of right acoustic neurinoma, Parkinson's disease, hypothyroidism, hypertension, hyperlipidemia, gastritis, osteoporosis, and dementia who presented to the ED on 06/11/2024 with concern of bloody stools for the past 3 days and abdominal pain. In the ED patient was found to have severe bradycardia and Cardiology was consulted for further management. #Severe bradycardia, resolved Assessment: Patient found in the ED to have bradycardia as low as 33. EKG showed afib with slow ventricular response. BP remained stable, patient is hypertensive. Troponin negative. BNP mildly elevated at 198. Patient is not on O2 and does appear to be requiring 2L O2. Differentials include vasovagal versus sick sinus syndrome versus beta-estevan overdose. At this time pacing and pacemaker is not indicated as the patient is not symptomatic from the bradycardia. Recommendations: -Hold home metoprolol 12.5 mg qday -Hold Eliquis due to recent concern of rectal bleeding -Patient may be discharged from a cardiac standpoint, following with cardiology appointment as scheduled -Consider CXR, TSH for workup Rest of conditions to continue current management per primary team: #Lower GI bleed, possibly from hemorrhoids #History of Parkinson's disease #History of hypothyroidism #History of hypertension #History of hyperlipidemia - Patient's care was discussed with my attending physician, Dr. Taran Box MD Internal Medicine PGY-3
[2024-06-12] MEDS: Magnesium Sulfate 4 GM Ivpb 4 GM/50 ML BAG IV (13:21)
[2024-06-12] MEDS: PANTOPRAZOLE INJ 40 MG VIAL IV ×2 (13:26→21:12)
[2024-06-12] MEDS: CARBIDOPA/LEVODOPA 25/100 MG TABLET 1 TAB PO ×2 (13:35→21:11)
--- NOTE | 2024-06-12 13:45 | ESPR_ITS ---
<Statement entered by Gutierrez Leigh MD - 06/13/24 08:56> I discussed with and supervised the design engineering intern physician involved in the care of this patient. Patient assessment and plan was discussed with entire medicine team, including my attending. I agree with the assessment and plan as documented by design engineering intern doctor. Patient care was discussed with my attending physician Dr. Nigel Leigh, PGY-2 Documentation for date of: 06/12/24 Subjective Subjective Interval history: Patient seen and examined at bedside. Patient admitted overnight, has complete hearing loss. Patient was cleared by cardiology, per cardiology recommendations hold metoprolol. Patient is pending GI bleed workup, started on Protonix 40 twice daily. Will continue IV antibiotics in setting of pneumonia. Labs and vitals reviewed. Potassium replaced, patient will be given magnesium and phosphorus as well. Will continue to monitor patient. Exam Vital Signs Temp Pulse Resp BP Pulse Ox O2 Del Method O2 Flow Rate 97.0 F 72 24 H 171/81 H 94 L Nasal Cannula 2 06/12/24 12:00 06/12/24 12:00 06/12/24 12:00 06/12/24 12:00 06/12/24 12:00 06/12/24 12:06/12/24 12:00 Narrative Exam Physical Exam General: Elderly female, awake and in no acute distress, non-toxic appearing. Unable to hear, but vocalizing in [place]. Answers simple questions written on paper. HEENT: Normocephalic, atraumatic, mucous membranes moist. On 2L NC. Heart: RRR, normal S1 and S2, no murmurs. Lungs: Clear to auscultation with no wheezing or crackles. Abdomen: Soft, nondistended, tenderness to palpation right abdomen however refusing further examination. Neurologic: Oriented to self and person, no gross neurological deficit, and patient able to move all 4 extremities. Extremities: No edema. Skin: No rash or ecchymoses. Objective Labs 06/12/24 08:15 06/12/24 08:15 Labs: Laboratory Results - last 24 hr 06/11/24 06/12/24 13:19 08:15 WBC 8.2 D RBC 4.80 Hgb 12.9 Hct 40.3 MCV 84 MCH 26.9 MCHC 32.0 RDW Std Deviation 46.4 H Plt Count 237 Neut % (Auto) 85 H Lymph % (Auto) 11 [place] % (Auto) 4 Eos % (Auto) 0 Baso % (Auto) 0 Neut # (Auto) 6.9 Lymph # (Auto) 0.9 L [place] # (Auto) 0.3 Eos # (Auto) 0.0 Baso # (Auto) 0.0 Immature Gran # (Auto) 0.02 H Absolute Nucleated RBC 0.00 Immature Gran % 0 Nucleated RBC % 0 Sodium 138 Potassium 3.2 L Chloride 104 Carbon Dioxide 22.7 Anion Gap 11 BUN 7 L Creatinine 0.5 L Estim Creat Clear Calc 71.5 eGFR > 60 BUN/Creatinine Ratio 14 Glucose 138 H Calculated Osmolality 275 Calcium 9.3 Corrected Calcium 9.3 Phosphorus 2.1 L Magnesium 1.8 Total Bilirubin 0.6 AST 34 ALT 8 L Alkaline Phosphatase 93 Troponin I < 0.020 B-Natriuretic Peptide 198 H Total Protein 7.1 Albumin 4.3 Globulin 2.8 Albumin/Globulin Ratio 1.5 TSH 0.98 Quality Measures Quality Measures VTE prophylaxis (SCDs) Advance care planning discussed with:: patient and child Assessment & Plan Assessment Current Active Medications: Generic Name Dose Route Start Last Admin Trade Name Freq PRN Reason Stop Dose Admin Acetaminophen 650 mg 06/11/24 20:08 Acetaminophen 325 Mg Tablet PO 07/11/24 20:07 Q6H PRN Fever >100.3 or pain 1-3 Albuterol/Ipratropium 3 ml 06/11/24 20:08 Albuterol/Ipratropium (Duoneb) Rt Arcelia 3 Ml Nebu INH 07/11/24 20:07 Q2HR PRN SHORTNESS OF BREATH OR WHEEZE Carbidopa/Levodopa 1 tab 06/11/24 22:00 06/12/24 13:35 Carbidopa/Levodopa 25/100 Mg Tablet PO 07/11/24 21:59 1 tab TID MOE Administration Hydroxyzine HCl 50 mg 06/12/24 12:39 Hydroxyzine Hcl 25 Mg Tablet PO 07/12/24 12:44 BID PRN ANXIETY Azithromycin 500 mg/ Sodium 250 mls @ 250 mls/hr 06/12/24 21:00 Chloride IV 06/19/24 20:59 HS MOE Ceftriaxone Sodium/Dextrose 1 gm in 50 mls @ 100 mls/hr 06/12/24 14:00 Rocephin/D5w 1gm Iv Premix IV 06/19/24 13:59 QDAY@1400 MOE Magnesium Sulfate 4 gm in 50 mls @ 12.5 mls/hr 06/12/24 12:34 06/12/24 13:21 Magnesium Sulfate Ivpb IV 06/12/24 16:33 12.5 mls/hr X1 ONE Administration Potassium Phosphate 15 mmol in 250 mls @ 62.5 mls/hr 06/12/24 12:34 06/12/24 13:04 Pot Phos 15 Mmol In Ns 250 Ml IV 06/12/24 16:33 62.5 mls/hr X1 ONE Administration Levothyroxine Sodium 25 mcg 06/12/24 06:00 06/12/24 05:41 Levothyroxine Sodium 25 Mcg Tablet PO 07/12/24 05:59 Not Given ACBR MOE Ondansetron HCl 4 mg 06/11/24 20:08 Ondansetron Inj 2 Mg/Ml Inj 2 Ml IV 07/11/24 20:07 Q6H PRN NAUSEA OR VOMITING Protocol Pantoprazole Sodium 40 mg 06/12/24 12:45 06/12/24 13:26 Pantoprazole Inj 40 Mg Vial IV 07/12/24 12:44 40 mg BID MOE Administration Pharmacy Consult 1 each 06/11/24 22:38 Pharmacy To Consult Patient XX 07/11/24 22:37 PRN PRN CONSULT Pharmacy Consult 1 each 06/11/24 22:38 Pharmacy To Consult Pneumovacc XX 07/11/24 22:37 PRN PRN CONSULT Sennosides 1 tab 06/11/24 20:08 Senna Tablet PO 07/11/24 20:07 QDAY PRN constipation Protocol Sertraline HCl 50 mg 06/11/24 21:00 06/11/24 22:53 Sertraline Hcl 25 Mg Tablet PO 07/11/24 20:59 50 mg HS MOE Administration Plan The patient is a 89 year old female with previous medical history of right acoustic neurinoma, Parkinson's disease, hypothyroidism, hypertension, hyperlipidemia, gastritis, osteoporosis, and dementia who was brought to the ED on 06/11/2024 due to abdominal pain, bright red blood in her stool. Her daughter at the bedside, reports that a few days ago patient started to have abdominal pain, bright red blood in the stool, general weakness, loss of appetite. Patient is going to be admitted for severe bradycardia and community-acquired pneumonia. #Lower GI bleed #GI bleed workup Patient's daughter reports that patient has been having bright red stools in the last few days has been reporting abdominal pain. On examination there is tenderness in the lower abdomen. CT abdomen pelvis was negative for acute pathology. Could be due hemorrhoidal bleeding. Plan: - Protonix 40 twice daily ? Home Eliquis on hold ? Gastroenterology consulted, appreciate recommendations ? Monitor CBC - Monitor vitals closely #Community-acquired pneumonia According to the daughter, patient has been having productive cough for a few days. CXR positive for early bibasilar pneumonia. Plan: ? Ceftriaxone 1 g daily ? Azithromycin 500 mg daily ? Oxygen supplementation as needed - Follow-up blood cultures, sputum culture #Severe bradycardia, resolved Bradycardia was recorded at the PCP office and patient was sent to the ED, due to cognitive deficit it is hard to say if the patient experiences the symptoms. According to the ED personnel, patient had an episode of syncope. At this time pacing and pacemaker is not indicated as the patient is not symptomatic from the bradycardia. Patient has good chronotropic response and bradycardia has resolved. TSH 0.98, within normal limits Plan: ? Hold home metoprolol per cardiology recommendations ? Hold Home Eliquis in setting of GI bleed workup ? Continue telemetry monitoring - cardiology is consulted, appreciate recommendations #History of Parkinson's disease Plan: ?Continue home carbidopa-levodopa #History of dementia #History of depression Plan: - Resumed home sertraline 50 mg p.o. daily and quetiapine 25 mg at bedtime - Patient is anxious, started on hydroxyzine as needed #History of hypertension Patient on losartan 100 mg and metoprolol tartrate 12.5 mg p.o. daily at home Patient received hydralazine as needed for hypertension - Resume home dose losartan 100mg daily - As needed hydralazine 10 mg for SBP/DBP greater than 180/100 - Monitor blood pressure, optimize therapy as needed #Hypothyroidism TSH 0.98, resume levothyroxine 25 mg ACBR #Electrolyte imbalance #Hypokalemia #Hypophosphatemia Correct and replace electrolytes as needed Health maintenance: FEN: Cardiac diet DVT prophylaxis: SCDs GI prophylaxis: Protonix twice daily Dispo: telemetry CODE STATUS: DNR (according to the family, they want to let her pass peacefully in the event of cardiac arrest) Case discussed with Attending Dr. Manning and Dr. Leigh PGY2. Beba Sutherland PGY1 Disclaimer: This note was dictated by speech recognition. Minor errors in street light servicer helper may be present due to voice recognition software. Attending Provider Attestation/Addendum 89-year-old female with Parkinson's disease, dementia, hypothyroidism, hypertension admitted for lower GI bleed. Noted to be bradycardic probably secondary to beta-estevan. The patient is also has community-acquired pneumonia on antibiotic. Hemoglobin is 12.9. Continue to monitor. GI consulted.
[2024-06-12] MEDS: cefTRIAXone/D5w 1gm IV premix 1 GM/50 ML BAG IV (14:46)
--- NOTE | 2024-06-12 14:47 | PC.SS ---
Rounding Note: GI workup pending. Patient receiving IV antbiotics. Dr. Chirinos consulting.
[2024-06-12] MEDS: LOSARTAN POTASSIUM 25 MG TABLET 100 MG PO (15:34)
--- NOTE | 2024-06-12 16:31 | CHAP ---
Patient and Family expressed gratitude for visit and prayer.
--- NOTE | 2024-06-12 17:08 | PC.RT ---
Sputum sample cup left with pt and instructions given via c iron worker to both pt and family member. Family member states that pt swallows sputum reflexively and cannot produce a sample. Pt instructed that induction will be necessary if she cannot cough up sputum.
--- NOTE | 2024-06-12 19:59 | PD.IMCONS ---
HPI Data of Consult Requesting Physician: Jose Daniel Manning MD Primary Care Provider: HARRIET Coyle Consult Narrative Reason for consult: Rectal bleeding History of present illness: No history obtained from the patient 89 years old female brought in by the daughter for 1 week history of rectal bleeding and abdominal pain CT abdomen pelvis without contrast did not reveal any lesion Patient has history of dementia Parkinson disease hypothyroidism hypertension osteoporosis and right acoustic neuroma with complete loss of hearing cc:: cc: Jose Daniel Manning MD Review of Systems Review of Systems ROS Unobtainable: unobtainable due to medical condition Past Medical History Surgical History OTHER SURGICAL HX: As in the history of present illness Meds Home Medications and Allergies Home Medications ?Medication ?Instructions ?Recorded ?Confirmed ?Type levothyroxine 25 mcg tablet 25 mcg PO QAM 01/15/18 06/11/24 History carbidopa 25 mg-levodopa 100 mg 1 tab PO TID 01/02/19 06/11/24 History tablet trazodone 100 mg tablet 100 mg PO HS PRN Insomnia 01/02/19 06/11/24 History baclofen 5 mg tablet 5 mg PO BID PRN Pain 06/18/21 06/12/24 History loratadine 10 mg tablet 10 mg PO QDAY PRN allergies 06/18/21 06/12/24 History sertraline 150 mg capsule 150 mg PO QDAY 06/18/21 06/12/24 History tramadol 50 mg tablet 50 mg PO BID PRN Pain 06/18/21 06/12/24 History atorvastatin 80 mg tablet 80 mg PO HS 06/11/24 06/11/24 History hydrocodone 5 mg-acetaminophen 325 1 tab PO BID PRN pain 06/11/24 06/11/24 History mg tablet oxybutynin chloride 5 mg tablet 5 mg PO QDAY 06/11/24 06/11/24 History quetiapine 25 mg tablet 25 mg PO HS 06/11/24 06/11/24 History sertraline 50 mg tablet 50 mg PO QDAY 06/11/24 06/12/24 History apixaban 5 mg tablet (Eliquis) 5 mg PO QDAY 06/12/24 06/12/24 History losartan 100 mg tablet 100 mg PO QDAY 06/12/24 06/12/24 History metoprolol tartrate 25 mg tablet 12.5 mg PO QDAY 06/12/24 06/12/24 History Allergies Allergy/AdvReac Type Severity Reaction Status Date / Time No Known Allergies Allergy Verified 06/18/21 09:51 Exam Vital Signs Temp Pulse Resp BP Pulse Ox O2 Del Method O2 Flow Rate 97.9 F 72 23 H 178/86 H 94 L Nasal Cannula 4 06/12/24 16:00 06/12/24 16:00 06/12/24 16:00 06/12/24 16:00 06/12/24 16:00 06/12/24 16:00 06/12/24 16:00 Constitutional Comments: Chronically ill-appearing Routine Respiratory Exam Comments: Normal to auscultation Routine Abdominal Exam Comments: Soft nontender Results Labs 06/12/24 08:15 06/12/24 08:15 Labs: Short CBC 06/12/24 Range/Units 08:15 WBC 8.2 D (3.6-11.0) Thou/mm3 Hgb 12.9 (12.0-16.0) g/dL Hct 40.3 (36.0-46.0) % Plt Count 237 (140-440) Thou/mm3 BMP 06/12/24 08:15 Sodium 138 Potassium 3.2 L Chloride 104 Carbon Dioxide 22.7 BUN 7 L Creatinine 0.5 L Glucose 138 H Calcium 9.3 Liver Function 06/12/24 Range/Units 08:15 Total Bilirubin 0.6 (0.3-1.2) mg/dL AST 34 (0-34) U/L ALT 8 L (10-49) U/L Alkaline Phosphatase 93 (46-116) U/L Albumin 4.3 (3.4-4.8) gm/dL Assessment and Plan Additional Assessment & Plan Additional Plan: Rectal bleeding ongoing for 1 week although hemoglobin hematocrit reasonably stable That is the major complaint the patient was brought into the hospital with by her daughter Plan 12 Vietnamese NGT GoLytely 400 cc an hour via the NGT Keep the head of the patient supine at 60 degrees If 1 gallon of GoLytely start making the patient clears to start the second gallon Consent will be obtained from the daughter for fiberoptic colonoscopy with possible therapeutic intervention under intravenous moderate sedation possible biopsy Other medical problems include Dementia Parkinson's disease On Eliquis for unspecified reasons Hypothyroidism Osteoporosis 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
[2024-06-12] MEDS: hydrOXYzine HCL 25 MG TABLET 50 MG PO (21:10)
[2024-06-12] MEDS: ACETAMINOPHEN 325 MG TABLET 650 MG PO (21:11)
[2024-06-12] MEDS: QUEtiapine FUMARATE 25 MG TABLET PO (21:11)
[2024-06-12] MEDS: ATORVASTATIN CALCIUM 20 MG TABLET 80 MG PO (21:11)
[2024-06-12] MEDS: ONDANSETRON INJ 2 MG/ML INJ 2 ML 4 MG IV (21:11)
[2024-06-12] MEDS: SERTRALINE HCL 25 MG TABLET 50 MG PO (21:11)
[2024-06-12] MEDS: AZITHROMYCIN INJ 500 MG in SODIUM CHLORIDE 0.9% 250 ML 250 ML 250 MG IV (21:12)
--- NOTE | 2024-06-12 22:01 | XR_ITS ---
Examination: AP chest single view Technique one AP portable semiupright chest single view Exam date and time: June 12, 2024 10:20 PM Comparison June 11, 2024 Indications: Post orogastric tube placement Findings: Orogastric tube is coiled in the oropharynx The cardiac contour mildly enlarged Accentuation of the basilar bronchovascular markings Impression: Remove the orogastric tube and reinsert
[2024-06-13] VITALS (12 sets, daily range): BP systolic 163–186; BP diastolic 76–103; PULSE 60–88; RESP 15–26; TEMP 36.1–36.9; O2SAT 96–100; BMI 25.4
--- NOTE | 2024-06-13 01:35 | XR_ITS ---
Examination: AP chest single view Technique one AP portable semiupright chest single view Exam date and time: June 13, 2024 0144 hrs. Comparison the 2024 Indications: Post orogastric tube placement Findings: Orogastric tube is coiled in the oropharynx and in the proximal esophagus Normal heart size Moderate vascular congestion Impression: Remove the orogastric tube completely and reinsert
--- NOTE | 2024-06-13 02:59 | PC.NURSE ---
Patient's daughter agreed for patient, who is altered at baseline, to receive an NG tube for Golytely placement in preparation for a colonoscopy..
--- NOTE | 2024-06-13 03:18 | PC.NURSE ---
Still waiting for CXR to be read for 2nd NG tube placement before starting Golytely.
--- NOTE | 2024-06-13 06:09 | PC.NURSE ---
Dr. Waters stated to hold 0600 oral meds for a few hours until NG tube placement is verified.
[2024-06-13 06:38] LABS: Basophils % (Auto) 1 % (0-2.5); Eosinophils # (Auto) 0.1 Thou/mm3 (0.0-0.5); Eosinophils % (Auto) 1 % (0-10); Hematocrit 38.1 % (36.0-46.0); Hemoglobin 12.3 g/dL (12.0-16.0); Immature Granulocytes % (Auto) 0 % (0-0); Lymphocytes # (Auto) 1.5 Thou/mm3 (1.0-4.8); Lymphocytes % (Auto) 20 % (10-50); Mean Corpuscular HGB Conc 32.3 g/dl (31.0-37.0); Mean Corpuscular Hemoglobin 27.1 pg (25.0-35.0); Mean Corpuscular Volume 84 fL (80-100); Monocytes # (Auto) 0.5 Thou/mm3 (0.0-0.8); Monocytes % (Auto) 7 % (0-12); Neutrophils # (Auto) 5.5 Thou/mm3 (1.8-7.7); Neutrophils % (Auto) 72 % (37-80); Nucleated Red Blood Cell % 0 /100 WBC (0); Platelet Count 258 Thou/mm3 (140-440); Red Blood Count 4.54 Miln/mm3 (4.00-5.20); White Blood Count 7.7 Thou/mm3 (3.6-11.0)
[2024-06-13 07:26] LABS: Alanine Aminotransferase 9 U/L (10-49); Albumin, Serum 3.9 gm/dL (3.4-4.8); Albumin/Globulin Ratio 1.4 (1.2-2.2); Alkaline Phosphatase 88 U/L (46-116); Anion Gap 8 (7-16); Aspartate Amino Transferase 33 U/L (0-34); BUN/Creatinine Ratio 16 Ratio (12-20); Bilirubin,Total 0.5 mg/dL (0.3-1.2); Blood Urea Nitrogen 11 mg/dL (9-23); Calcium 8.9 mg/dL (8.3-10.6); Carbon Dioxide 26.1 mMol/L (20.0-31.0); Chloride 106 mMol/L (98-107); Creatinine (Component) 0.7 mg/dL (0.6-1.3); Estimated Creatinine Clearance 50.4 mL/min (>60); Globulin 2.7 gm/dL (2.3-3.5); Glucose 117 mg/dL (74-106); Magnesium 2.6 mg/dL (1.6-2.6); Osmolality,Calculated 279 (275-295); Phosphorous 3.5 mg/dL (2.4-5.1); Potassium 3.5 mMol/L (3.4-5.1); Sodium 140 mMol/L (136-145); Total Protein 6.6 gm/dL (5.7-8.2); eGFR > 60 See Note
--- NOTE | 2024-06-13 07:50 | XR_ITS ---
Examination: AP chest single view TECHNIQUE: AP portable semiupright chest single view Exam date and time: June 13, 2024 at 0849 hours Comparison June 13, 2024 INDICATIONS: Post orogastric tube placement FINDINGS: Orogastric tube in the stomach satisfactory position Normal heart size No lobar pneumonia IMPRESSION: Orogastric tube in the stomach satisfactory position
[2024-06-13] MEDS: PANTOPRAZOLE INJ 40 MG VIAL IV ×2 (09:17→20:45)
[2024-06-13] MEDS: LOSARTAN POTASSIUM 25 MG TABLET 100 MG PO (09:18)
[2024-06-13] MEDS: LEVOTHYROXINE SODIUM 25 MCG TABLET PO (09:18)
[2024-06-13] MEDS: OXYBUTYNIN CHLOR 5 MG TABLET PO (09:18)
[2024-06-13] MEDS: CARBIDOPA/LEVODOPA 25/100 MG TABLET 1 TAB PO ×3 (09:18→21:23)
[2024-06-13] MEDS: NA SU/NAHCO3/KC/PEG (Golytely) 4,000 ML BTL 4000 ML PO ×2 (09:30→16:36)
[2024-06-13] MEDS: cefTRIAXone/D5w 1gm IV premix 1 GM/50 ML BAG IV (13:39)
--- NOTE | 2024-06-13 15:24 | ESPR_ITS ---
<Statement entered by Gutierrez Leigh MD - 06/14/24 14:31> I discussed with and supervised the dental internship physician involved in the care of this patient. Patient assessment and plan was discussed with entire medicine team, including my attending. I agree with the assessment and plan as documented by dental internship doctor. Patient care was discussed with my attending physician Dr. Nigel Leigh, PGY-2 Documentation for date of: 06/13/24 Subjective Subjective Interval history: Patient seen and examined at bedside. Patient had NG tube placed, receiving GoLytely through NG tube and. Patient receiving IV antibiotics for pneumonia, pending cultures Patient cleared by cardiology, bradycardia has resolved. Patient receiving medications through NG tube. Patient blood pressure continues to remain high, will start on amlodipine. Will continue to monitor patient Exam Vital Signs Temp Pulse Resp BP Pulse Ox O2 Del Method O2 Flow Rate 97.3 F 74 19 167/98 H 100 Nasal Cannula 2 06/13/24 12:00 06/13/24 12:00 06/13/24 12:00 06/13/24 12:00 06/13/24 12:00 06/13/24 12:00 06/13/24 12:00 Narrative Exam Physical Exam General: Elderly female, awake and in no acute distress, non-toxic appearing. Unable to hear, but vocalizing in [place]. Answers simple questions written on paper. HEENT: Normocephalic, atraumatic, mucous membranes moist. On 2L NC. NG tube intact. Heart: RRR, normal S1 and S2, no murmurs. Lungs: Clear to auscultation with no wheezing or crackles. Abdomen: Soft, nondistended, tenderness to palpation right abdomen however refusing further examination. Neurologic: Oriented to self and person, no gross neurological deficit, and patient able to move all 4 extremities. Extremities: No edema. Skin: No rash or ecchymoses. Objective Labs 06/13/24 06:12 06/13/24 06:12 Labs: Laboratory Results - last 24 hr 06/13/24 06:12 WBC 7.7 RBC 4.54 Hgb 12.3 Hct 38.1 MCV 84 MCH 27.1 MCHC 32.3 RDW Std Deviation 48.0 H Plt Count 258 Neut % (Auto) 72 Lymph % (Auto) 20 [place] % (Auto) 7 Eos % (Auto) 1 Baso % (Auto) 1 Neut # (Auto) 5.5 Lymph # (Auto) 1.5 [place] # (Auto) 0.5 Eos # (Auto) 0.1 Baso # (Auto) 0.0 Immature Gran # (Auto) 0.00 Absolute Nucleated RBC 0.00 Immature Gran % 0 Nucleated RBC % 0 Sodium 140 Potassium 3.5 Chloride 106 Carbon Dioxide 26.1 Anion Gap 8 BUN 11 Creatinine 0.7 Estim Creat Clear Calc 50.4 L eGFR > 60 BUN/Creatinine Ratio 16 Glucose 117 H Calculated Osmolality 279 Calcium 8.9 Corrected Calcium 9.0 Phosphorus 3.5 Magnesium 2.6 Total Bilirubin 0.5 AST 33 ALT 9 L Alkaline Phosphatase 88 Total Protein 6.6 Albumin 3.9 Globulin 2.7 Albumin/Globulin Ratio 1.4 Quality Measures Quality Measures VTE prophylaxis (SCDs) Advance care planning discussed with:: patient Assessment & Plan Assessment Current Active Medications: Generic Name Dose Route Start Last Admin Trade Name Freq PRN Reason Stop Dose Admin Acetaminophen 650 mg 06/11/24 20:08 06/12/24 21:11 Acetaminophen 325 Mg Tablet PO 07/11/24 20:07 650 mg Q6H PRN Administration Fever >100.3 or pain 1-3 Albuterol/Ipratropium 3 ml 06/11/24 20:08 Albuterol/Ipratropium (Duoneb) Rt Arcelia 3 Ml Nebu INH 07/11/24 20:07 Q2HR PRN SHORTNESS OF BREATH OR WHEEZE Atorvastatin Calcium 80 mg 06/12/24 21:00 06/12/24 21:11 Atorvastatin Calcium 20 Mg Tablet PO 07/12/24 20:59 80 mg HS MOE Administration Carbidopa/Levodopa 1 tab 06/11/24 22:00 06/13/24 13:40 Carbidopa/Levodopa 25/100 Mg Tablet PO 07/11/24 21:59 1 tab TID MOE Administration Hydralazine HCl 10 mg 06/12/24 15:19 Hydralazine Inj 20 Mg/Ml Vial IV 07/12/24 15:18 Q6H PRN SBP > 180 & DBP > 100 Hydroxyzine HCl 50 mg 06/12/24 12:39 06/12/24 21:10 Hydroxyzine Hcl 25 Mg Tablet PO 07/12/24 12:44 50 mg BID PRN Administration ANXIETY Azithromycin 500 mg/ Sodium 250 mls @ 250 mls/hr 06/12/24 21:00 06/12/24 21:12 Chloride IV 06/19/24 20:59 250 mls/hr HS MOE Administration Ceftriaxone Sodium/Dextrose 1 gm in 50 mls @ 100 mls/hr 06/12/24 14:00 06/13/24 13:39 Rocephin/D5w 1gm Iv Premix IV 06/19/24 13:59 100 mls/hr QDAY@1400 MOE Administration Levothyroxine Sodium 25 mcg 06/12/24 06:00 06/13/24 09:18 Levothyroxine Sodium 25 Mcg Tablet PO 07/12/24 05:59 25 mcg ACBR MOE Administration Losartan Potassium 100 mg 06/12/24 15:15 06/13/24 09:18 Losartan Potassium 25 Mg Tablet PO 07/12/24 15:14 100 mg QDAY MOE Administration Ondansetron HCl 4 mg 06/11/24 20:08 06/12/24 21:11 Ondansetron Inj 2 Mg/Ml Inj 2 Ml IV 07/11/24 20:07 4 mg Q6H PRN Administration NAUSEA OR VOMITING Protocol Oxybutynin Chloride 5 mg 06/13/24 09:00 06/13/24 09:18 Oxybutynin Chlor 5 Mg Tablet PO 07/13/24 08:59 5 mg QDAY MOE Administration Pantoprazole Sodium 40 mg 06/12/24 12:45 06/13/24 09:17 Pantoprazole Inj 40 Mg Vial IV 07/12/24 12:44 40 mg BID MOE Administration Pharmacy Consult 1 each 06/11/24 22:38 Pharmacy To Consult Patient XX 07/11/24 22:37 PRN PRN CONSULT Pharmacy Consult 1 each 06/11/24 22:38 Pharmacy To Consult Pneumovacc XX 07/11/24 22:37 PRN PRN CONSULT Quetiapine Fumarate 25 mg 06/12/24 21:00 06/12/24 21:11 Quetiapine Fumarate 25 Mg Tablet PO 07/12/24 20:59 25 mg HS MOE Administration Sennosides 1 tab 06/11/24 20:08 Senna Tablet PO 07/11/24 20:07 QDAY PRN constipation Protocol Sertraline HCl 50 mg 06/11/24 21:00 06/12/24 21:11 Sertraline Hcl 25 Mg Tablet PO 07/11/24 20:59 50 mg HS MOE Administration Plan The patient is a 89 year old female with previous medical history of right acoustic neurinoma, Parkinson's disease, hypothyroidism, hypertension, hyperlipidemia, gastritis, osteoporosis, and dementia who was brought to the ED on 06/11/2024 due to abdominal pain, bright red blood in her stool. Her daughter at the bedside, reports that a few days ago patient started to have abdominal pain, bright red blood in the stool, general weakness, loss of appetite. Patient is going to be admitted for severe bradycardia and community-acquired pneumonia. #Lower GI bleed #GI bleed workup Patient's daughter reports that patient has been having bright red stools in the last few days has been reporting abdominal pain. On examination there is tenderness in the lower abdomen. CT abdomen pelvis was negative for acute pathology. Could be due hemorrhoidal bleeding. Patient has NG tube intact Plan: - GoLytely via NG tube - Protonix 40 twice daily ? Home Eliquis on hold ? Gastroenterology consulted, appreciate recommendations ? Monitor CBC - Monitor vitals closely #Community-acquired pneumonia According to the daughter, patient has been having productive cough for a few days. CXR positive for early bibasilar pneumonia. Plan: ? Ceftriaxone 1 g daily ? Azithromycin 500 mg daily ? Oxygen supplementation as needed - Follow-up blood cultures, sputum culture #Severe bradycardia, resolved Bradycardia was recorded at the PCP office and patient was sent to the ED, due to cognitive deficit it is hard to say if the patient experiences the symptoms. According to the ED personnel, patient had an episode of syncope. At this time pacing and pacemaker is not indicated as the patient is not symptomatic from the bradycardia. Patient has good chronotropic response and bradycardia has resolved. TSH 0.98, within normal limits Plan: ? Hold home metoprolol per cardiology recommendations ? Hold Home Eliquis in setting of GI bleed workup ? Continue telemetry monitoring - cardiology is consulted, appreciate recommendations #History of Parkinson's disease Plan: ?Continue home carbidopa-levodopa #History of dementia #History of depression Plan: - Resumed home sertraline 50 mg p.o. daily and quetiapine 25 mg at bedtime - Patient is anxious, started on hydroxyzine as needed #History of hypertension Patient on losartan 100 mg and metoprolol tartrate 12.5 mg p.o. daily at home Patient received hydralazine as needed for hypertension - Resume home dose losartan 100mg daily - Started on amlodipine 5mg daily - As needed hydralazine 10 mg for SBP/DBP greater than 180/100 - Monitor blood pressure, optimize therapy as needed #Hypothyroidism TSH 0.98, resume levothyroxine 25 mg ACBR #Electrolyte imbalance #Hypokalemia #Hypophosphatemia Correct and replace electrolytes as needed Health maintenance: FEN: Cardiac diet DVT prophylaxis: SCDs GI prophylaxis: Protonix twice daily Dispo: telemetry CODE STATUS: DNR (according to the family, they want to let her pass peacefully in the event of cardiac arrest) Case discussed with Attending Dr. Manning and Dr. Leigh PGY2. Beba Sutherland PGY1 Disclaimer: This note was dictated by speech recognition. Minor errors in education program coordinator may be present due to voice recognition software. Attending Provider Attestation/Addendum Patient with lower GI bleed pending completion of bowel prep. The patient has an NG tube. Patient's daughter at bedside discussed plan of care. Discussed with housestaff.
--- NOTE | 2024-06-13 15:28 | PC.SS ---
Rounding Note: Colonoscopy is pending. Patient treated for PNA. D/C plan is for the patient to return home.
[2024-06-13] MEDS: hydrALAZINE INJ 20 MG/ML VIAL 10 MG IV (16:06)
--- NOTE | 2024-06-13 16:17 | CHAP ---
Patient and Family expressed gratitude for visit and prayer.
--- NOTE | 2024-06-13 16:19 | CHAP ---
Patient and Family expressed gratitude for visit and prayer.
--- NOTE | 2024-06-13 16:41 | PC.SS ---
ASPHALT MIXING MACHINE OPERATOR conducted bedside contact with the patient conduct initial assessment and to discuss discharge planning.? At bedside with patient was granddaughter, Becky.? Granddaughter provided information for assessment and discharge planning.? Patient resides at home on same property as daughter, Priyanka Walker .? Patient utilizes a walker to assist with ambulation.? Patient does not utilize home oxygen.? Patient requires assistance with completion of ADL?s.? Patient?s surrogate medical decision maker is daughter, Priyanka Walker.? Patient?s PCP is Sheri Farah.? Patient does not possess any specialty providers.? Patient utilizes [facility] for medication services.? Discharge plan is for the patient to return home.? Patient previously aligned with [facility] health.? Family would like to resume [facility] home health services upon discharge.? Family will provide transportation on behalf of the patient.? No further discharge needs identified by the patient?s granddaughter.? No further intervention required at this time, social economist will be available to address any further concerns.? Next of Kin: Priyanka Aaron D/C Plan: Home
[2024-06-13] MEDS: amLODIPine BESYLATE 5 MG TABLET PO (18:17)
--- NOTE | 2024-06-13 19:55 | PD.IMPROG ---
Documentation for date of: 06/13/24 Subjective Subjective Interval history: GoLytely did not get started till this morning after placement of an NGT Patient is not clear at the moment Additional GoLytely will be given Colonoscopy postponed to tomorrow or whenever the patient is clear Exam Vital Signs Temp Pulse Resp BP Pulse Ox O2 Del Method O2 Flow Rate 97.3 F 88 17 175/92 H 98 Nasal Cannula 1 06/13/24 16:00 06/13/24 19:39 06/13/24 19:39 06/13/24 18:17 06/13/24 19:39 06/13/24 16:00 06/13/24 19:39 Objective Labs 06/13/24 06:12 06/13/24 06:12 Labs: Laboratory Results - last 24 hr 06/13/24 06:12 WBC 7.7 RBC 4.54 Hgb 12.3 Hct 38.1 MCV 84 MCH 27.1 MCHC 32.3 RDW Std Deviation 48.0 H Plt Count 258 Neut % (Auto) 72 Lymph % (Auto) 20 [place] % (Auto) 7 Eos % (Auto) 1 Baso % (Auto) 1 Neut # (Auto) 5.5 Lymph # (Auto) 1.5 [place] # (Auto) 0.5 Eos # (Auto) 0.1 Baso # (Auto) 0.0 Immature Gran # (Auto) 0.00 Absolute Nucleated RBC 0.00 Immature Gran % 0 Nucleated RBC % 0 Sodium 140 Potassium 3.5 Chloride 106 Carbon Dioxide 26.1 Anion Gap 8 BUN 11 Creatinine 0.7 Estim Creat Clear Calc 50.4 L eGFR > 60 BUN/Creatinine Ratio 16 Glucose 117 H Calculated Osmolality 279 Calcium 8.9 Corrected Calcium 9.0 Phosphorus 3.5 Magnesium 2.6 Total Bilirubin 0.5 AST 33 ALT 9 L Alkaline Phosphatase 88 Total Protein 6.6 Albumin 3.9 Globulin 2.7 Albumin/Globulin Ratio 1.4 Impressions Impression: # Rectal bleeding Continue GoLytely prep Colonoscopy a.m. Assessment & Plan A&P Narrative Rectal bleeding ongoing for 1 week although hemoglobin hematocrit reasonably stable That is the major complaint the patient was brought into the hospital with by her daughter Plan 12 [place] NGT GoLytely 400 cc an hour via the NGT Keep the head of the patient supine at 60 degrees If 1 gallon of GoLytely start making the patient clears to start the second gallon Consent will be obtained from the daughter for fiberoptic colonoscopy with possible therapeutic intervention under intravenous moderate sedation possible biopsy Other medical problems include Dementia Parkinson's disease On Eliquis for unspecified reasons Hypothyroidism Osteoporosis 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
--- NOTE | 2024-06-13 19:59 | PC.NURSE ---
Addendum entered by Ash Peraza RN 06/13/24 20:04: RUPA Aleman will call Dr. Waters again because RN is unable to administer the hydralazine because hydralazine is q6h and the last dose was at 1606. Original Note: RUPA Aleman attempted to call hospitalist regarding patient blood pressure of 179/76 and a pulse of 84. RUPA Aleman attempted to call hospitalists at [phone] and [phone] to no avail. Parameters for the Hydralazine says to give if systolic blood pressure is >180 and if diastolic blood pressure is >100. Dr. Waters returned call and RUPA Aleman explained to her the situation, and she said it is okay to give the hydralazine NC for the blood pressure of 179/76 and pulse of 84.
[2024-06-13] MEDS: hydrALAZINE INJ 20 MG/ML VIAL 5 MG IV (20:44)
[2024-06-13] MEDS: AZITHROMYCIN INJ 500 MG in SODIUM CHLORIDE 0.9% 250 ML 250 ML 250 MG IV (20:47)
[2024-06-13] MEDS: QUEtiapine FUMARATE 25 MG TABLET PO (20:48)
[2024-06-13] MEDS: SERTRALINE HCL 25 MG TABLET 50 MG PO (20:48)
[2024-06-13] MEDS: ATORVASTATIN CALCIUM 20 MG TABLET 80 MG PO (20:49)
[2024-06-14] VITALS (23 sets, daily range): BP systolic 134–189; BP diastolic 58–95; PULSE 64–92; RESP 15–26; TEMP 36.2–36.8; O2SAT 94–99; BMI 25.4
[2024-06-14] MEDS: LEVOTHYROXINE SODIUM 25 MCG TABLET PO (05:08)
[2024-06-14] MEDS: CARBIDOPA/LEVODOPA 25/100 MG TABLET 1 TAB PO ×2 (05:08→21:28)
[2024-06-14 06:08] LABS: Basophils % (Auto) 0 % (0-2.5); Eosinophils # (Auto) 0.2 Thou/mm3 (0.0-0.5); Eosinophils % (Auto) 2 % (0-10); Hematocrit 36.3 % (36.0-46.0); Hemoglobin 11.6 g/dL (12.0-16.0); Immature Granulocytes % (Auto) 0 % (0-0); Immature Granulocytes Auto 0.02 Thou/mm3 (0.00-0.00); Lymphocytes # (Auto) 1.4 Thou/mm3 (1.0-4.8); Lymphocytes % (Auto) 18 % (10-50); Mean Corpuscular Hemoglobin 27.2 pg (25.0-35.0); Mean Corpuscular Volume 85 fL (80-100); Monocytes # (Auto) 0.4 Thou/mm3 (0.0-0.8); Monocytes % (Auto) 6 % (0-12); Neutrophils # (Auto) 5.6 Thou/mm3 (1.8-7.7); Neutrophils % (Auto) 74 % (37-80); Nucleated Red Blood Cell % 0 /100 WBC (0); Platelet Count 199 Thou/mm3 (140-440); RDW Standard Deviation 48.9 fL (36.4-46.3); Red Blood Count 4.27 Miln/mm3 (4.00-5.20); White Blood Count 7.7 Thou/mm3 (3.6-11.0)
[2024-06-14 06:54] LABS: Alanine Aminotransferase < 7 U/L (10-49); Albumin, Serum 3.5 gm/dL (3.4-4.8); Albumin/Globulin Ratio 1.5 (1.2-2.2); Alkaline Phosphatase 86 U/L (46-116); Anion Gap 10 (7-16); Aspartate Amino Transferase 36 U/L (0-34); BUN/Creatinine Ratio 14 Ratio (12-20); Bilirubin,Total 0.5 mg/dL (0.3-1.2); Blood Urea Nitrogen 7 mg/dL (9-23); Calcium 8.2 mg/dL (8.3-10.6); Calcium (Corrected) 8.6 mg/dL (8.5-10.1); Carbon Dioxide 26.9 mMol/L (20.0-31.0); Chloride 104 mMol/L (98-107); Creatinine (Component) 0.5 mg/dL (0.6-1.3); Estimated Creatinine Clearance 70.6 mL/min (>60); Globulin 2.4 gm/dL (2.3-3.5); Glucose 105 mg/dL (74-106); Magnesium 1.7 mg/dL (1.6-2.6); Osmolality,Calculated 279 (275-295); Phosphorous 2.1 mg/dL (2.4-5.1); Potassium 3.2 mMol/L (3.4-5.1); Sodium 141 mMol/L (136-145); Total Protein 5.9 gm/dL (5.7-8.2); eGFR > 60 See Note
[2024-06-14 08:23] LABS: OBS Card Expiration Date 2026-09; OBS Card Lot # 23001; OBS Developer Lot # 23002; OBS Performed By LAB; OBS QC OK? Yes
[2024-06-14] MEDS: LOSARTAN POTASSIUM 25 MG TABLET 100 MG PO (08:32)
[2024-06-14] MEDS: PANTOPRAZOLE INJ 40 MG VIAL IV ×2 (08:32→21:38)
[2024-06-14] MEDS: OXYBUTYNIN CHLOR 5 MG TABLET PO (08:32)
[2024-06-14] MEDS: amLODIPine BESYLATE 5 MG TABLET PO (08:33)
[2024-06-14 08:41] LABS: Occult Blood, Stool Negative (Negative)
[2024-06-14] MEDS: POTASSIUM CHLORIDE 10% 20 MEQ/15 ML UDC 40 MEQ NG (08:41)
[2024-06-14] MEDS: POT PHOS 15 mMol in NS 250 ML 15 MMOL/250 ML BAG 62.5 MMOL IV (08:42)
--- NOTE | 2024-06-14 10:00 | PC.SS ---
Patient needs a rollating walker for home. The diagnosis creates mobility limitation that significantly impairs ability to participate in the patients activities of daily living either in their entirety, or in a reasonable time frame. Also the patient is able to safely use the walker and the patient?s mobility is sufficiently resolved with the use of the walker and cane has been ruled out.
--- NOTE | 2024-06-14 12:14 | PC.SS ---
DME referral submitted on [facility] for FWW. Responses are pending.
[2024-06-14] MEDS: cefTRIAXone/D5w 1gm IV premix 1 GM/50 ML BAG IV (13:23)
--- NOTE | 2024-06-14 14:02 | ESPR_ITS ---
<Statement entered by Gutierrez Leigh MD - 06/14/24 18:37> I discussed with and supervised the digital intern physician involved in the care of this patient. Patient assessment and plan was discussed with entire medicine team, including my attending. I agree with the assessment and plan as documented by digital intern doctor. Patient care was discussed with my attending physician Dr. Nigel Leigh, PGY-2 Documentation for date of: 06/14/24 Subjective Subjective Interval history: Patient seen and examined at bedside. Patient had NG tube placed, receiving GoLytely through NG tube and. Patient receiving IV antibiotics for pneumonia, pending cultures Patient cleared by cardiology, bradycardia has resolved. Patient receiving medications through NG tube. Will continue amlodipine and losartan for hypertension. Will hold Seroquel for tonight, patient more somnolent compared to yesterday. Will continue to monitor patient Exam Vital Signs Temp Pulse Resp BP Pulse Ox O2 Del Method O2 Flow Rate 98.3 F 77 19 153/77 H 97 Nasal Cannula 1 06/14/24 12:00 06/14/24 12:06/14/24 12:06/14/24 12:06/14/24 12:06/14/24 12:06/14/24 12:00 Narrative Exam Physical Exam General: Elderly female, awake and in no acute distress, non-toxic appearing. Unable to hear, but vocalizing in Tongan. Answers simple questions written on paper. HEENT: Normocephalic, atraumatic, mucous membranes moist. On 2L NC. NG tube intact. Heart: RRR, normal S1 and S2, no murmurs. Lungs: Clear to auscultation with no wheezing or crackles. Abdomen: Soft, nondistended, tenderness to palpation right abdomen however refusing further examination. Neurologic: Oriented to self and person, no gross neurological deficit, and patient able to move all 4 extremities. Extremities: No edema. Skin: No rash or ecchymoses. Objective Labs 06/15/24 06:10 06/15/24 06:10 Labs: Laboratory Results - last 24 hr 06/13/24 06/14/24 16:20 05:37 WBC 7.7 RBC 4.27 Hgb 11.6 L Hct 36.3 MCV 85 MCH 27.2 MCHC 32.0 RDW Std Deviation 48.9 H Plt Count 199 D Neut % (Auto) 74 Lymph % (Auto) 18 [place] % (Auto) 6 Eos % (Auto) 2 Baso % (Auto) 0 Neut # (Auto) 5.6 Lymph # (Auto) 1.4 [place] # (Auto) 0.4 Eos # (Auto) 0.2 Baso # (Auto) 0.0 Immature Gran # (Auto) 0.02 H Absolute Nucleated RBC 0.00 Immature Gran % 0 Nucleated RBC % 0 Sodium 141 Potassium 3.2 L Chloride 104 Carbon Dioxide 26.9 Anion Gap 10 BUN 7 L Creatinine 0.5 L Estim Creat Clear Calc 70.6 eGFR > 60 BUN/Creatinine Ratio 14 Glucose 105 Calculated Osmolality 279 Calcium 8.2 L Corrected Calcium 8.6 Phosphorus 2.1 L Magnesium 1.7 Total Bilirubin 0.5 AST 36 H ALT < 7 L Alkaline Phosphatase 86 Total Protein 5.9 Albumin 3.5 Globulin 2.4 Albumin/Globulin Ratio 1.5 Stool Occult Blood Negative Quality Measures Quality Measures VTE prophylaxis (SCDs) Advance care planning discussed with:: patient Assessment & Plan Assessment Current Active Medications: Generic Name Dose Route Start Last Admin Trade Name Freq PRN Reason Stop Dose Admin Acetaminophen 650 mg 06/11/24 20:08 06/12/24 21:11 Acetaminophen 325 Mg Tablet PO 07/11/24 20:07 650 mg Q6H PRN Administration Fever >100.3 or pain 1-3 Albuterol/Ipratropium 3 ml 06/11/24 20:08 Albuterol/Ipratropium (Duoneb) Rt Arcelia 3 Ml Nebu INH 07/11/24 20:07 Q2HR PRN SHORTNESS OF BREATH OR WHEEZE Amlodipine Besylate 5 mg 06/13/24 18:00 06/14/24 08:33 Amlodipine Besylate 5 Mg Tablet PO 07/13/24 17:59 5 mg QDAY MOE Administration Atorvastatin Calcium 80 mg 06/12/24 21:00 06/13/24 20:49 Atorvastatin Calcium 20 Mg Tablet PO 07/12/24 20:59 80 mg HS MOE Administration Carbidopa/Levodopa 1 tab 06/11/24 22:00 06/14/24 13:23 Carbidopa/Levodopa 25/100 Mg Tablet PO 07/11/24 21:59 Not Given TID MOE Hydralazine HCl 10 mg 06/12/24 15:19 06/13/24 16:06 Hydralazine Inj 20 Mg/Ml Vial IV 07/12/24 15:18 10 mg Q6H PRN Administration SBP > 180 & DBP > 100 Hydroxyzine HCl 50 mg 06/12/24 12:39 06/12/24 21:10 Hydroxyzine Hcl 25 Mg Tablet PO 07/12/24 12:44 50 mg BID PRN Administration ANXIETY Azithromycin 500 mg/ Sodium 250 mls @ 250 mls/hr 06/12/24 21:00 06/13/24 20:47 Chloride IV 06/19/24 20:59 250 mls/hr HS MOE Administration Ceftriaxone Sodium/Dextrose 1 gm in 50 mls @ 100 mls/hr 06/12/24 14:00 06/14/24 13:23 Rocephin/D5w 1gm Iv Premix IV 06/19/24 13:59 100 mls/hr QDAY@1400 MOE Administration Levothyroxine Sodium 25 mcg 06/12/24 06:00 06/14/24 05:08 Levothyroxine Sodium 25 Mcg Tablet PO 07/12/24 05:59 25 mcg ACBR MOE Administration Losartan Potassium 100 mg 06/12/24 15:15 06/14/24 08:32 Losartan Potassium 25 Mg Tablet PO 07/12/24 15:14 100 mg QDAY MOE Administration Ondansetron HCl 4 mg 06/11/24 20:08 06/12/24 21:11 Ondansetron Inj 2 Mg/Ml Inj 2 Ml IV 07/11/24 20:07 4 mg Q6H PRN Administration NAUSEA OR VOMITING Protocol Oxybutynin Chloride 5 mg 06/13/24 09:00 06/14/24 08:32 Oxybutynin Chlor 5 Mg Tablet PO 07/13/24 08:59 5 mg QDAY MOE Administration Pantoprazole Sodium 40 mg 06/12/24 12:45 06/14/24 08:32 Pantoprazole Inj 40 Mg Vial IV 07/12/24 12:44 40 mg BID MOE Administration Pharmacy Consult 1 each 06/11/24 22:38 Pharmacy To Consult Patient XX 07/11/24 22:37 PRN PRN CONSULT Pharmacy Consult 1 each 06/11/24 22:38 Pharmacy To Consult Pneumovacc XX 07/11/24 22:37 PRN PRN CONSULT Quetiapine Fumarate 25 mg 06/12/24 21:00 06/13/24 20:48 Quetiapine Fumarate 25 Mg Tablet PO 07/12/24 20:59 25 mg HS MOE Administration Sennosides 1 tab 06/11/24 20:08 Senna Tablet PO 07/11/24 20:07 QDAY PRN constipation Protocol Sertraline HCl 50 mg 06/11/24 21:00 06/13/24 20:48 Sertraline Hcl 25 Mg Tablet PO 07/11/24 20:59 50 mg HS MOE Administration Plan The patient is a 89 year old female with previous medical history of right acoustic neurinoma, Parkinson's disease, hypothyroidism, hypertension, hyperlipidemia, gastritis, osteoporosis, and dementia who was brought to the ED on 06/11/2024 due to abdominal pain, bright red blood in her stool. Her daughter at the bedside, reports that a few days ago patient started to have abdominal pain, bright red blood in the stool, general weakness, loss of appetite. Patient is going to be admitted for severe bradycardia and community-acquired pneumonia. #Lower GI bleed #GI bleed workup Patient's daughter reports that patient has been having bright red stools in the last few days has been reporting abdominal pain. On examination there is tenderness in the lower abdomen. CT abdomen pelvis was negative for acute pathology. Could be due hemorrhoidal bleeding. Patient has NG tube intact Plan: - GoLytely via NG tube - Protonix 40 twice daily ? Home Eliquis on hold ? Gastroenterology consulted, appreciate recommendations ? Monitor CBC - Monitor vitals closely #Community-acquired pneumonia According to the daughter, patient has been having productive cough for a few days. CXR positive for early bibasilar pneumonia. Plan: ? Ceftriaxone 1 g daily ? Azithromycin 500 mg daily ? Oxygen supplementation as needed - Follow-up blood cultures, sputum culture #Severe bradycardia, resolved #Atrial fibrillation, rate controlled Bradycardia was recorded at the PCP office and patient was sent to the ED, due to cognitive deficit it is hard to say if the patient experiences the symptoms. According to the ED personnel, patient had an episode of syncope. At this time pacing and pacemaker is not indicated as the patient is not symptomatic from the bradycardia. Patient has good chronotropic response and bradycardia has resolved. TSH 0.98, within normal limits Plan: ? Hold home metoprolol per cardiology recommendations ? Hold Home Eliquis in setting of GI bleed workup ? Continue telemetry monitoring - cardiology is consulted, appreciate recommendations #History of Parkinson's disease Plan: ?Continue home carbidopa-levodopa #History of dementia #History of depression Plan: - Resumed home sertraline 50 mg p.o. daily and quetiapine 25 mg at bedtime - Patient is anxious, started on hydroxyzine as needed #History of hypertension Patient on losartan 100 mg and metoprolol tartrate 12.5 mg p.o. daily at home Patient received hydralazine as needed for hypertension - Resume home dose losartan 100mg daily - Continue amlodipine 5mg daily - As needed hydralazine 10 mg for SBP/DBP greater than 180/100 - Monitor blood pressure, optimize therapy as needed #Hypothyroidism TSH 0.98, resume levothyroxine 25 mg ACBR #Electrolyte imbalance #Hypokalemia #Hypophosphatemia Correct and replace electrolytes as needed Health maintenance: FEN: Cardiac diet DVT prophylaxis: SCDs GI prophylaxis: Protonix twice daily Dispo: telemetry CODE STATUS: DNR (according to the family, they want to let her pass peacefully in the event of cardiac arrest) Case discussed with Attending Dr. Manning and Dr. Leigh PGY2. Beba Sutherland PGY1 Disclaimer: This note was dictated by speech recognition. Minor errors in halfway house counselor may be present due to voice recognition software. Attending Provider Attestation/Addendum Scheduled for colonoscopy pending completion of GoLytely prep. Team discussed plan with her daughter with an full time staff interpreter. I discussed with and supervised the resident physician who took care of this patient. I agree with the assessment and plan as above.
--- NOTE | 2024-06-14 20:30 | SUR.PHASEI ---
2023 To PACU able to lift head off of pillow, following simple commands continue to monitor pt vital signs and status.
--- NOTE | 2024-06-14 20:55 | SUR.PHASEI ---
2055 Transfer pt back to room 265 in stable condition, no complaints, no s/s of distress noted.
[2024-06-14] MEDS: ATORVASTATIN CALCIUM 20 MG TABLET 80 MG PO (21:28)
[2024-06-14] MEDS: SERTRALINE HCL 25 MG TABLET 50 MG PO (21:28)
[2024-06-14] MEDS: ACETAMINOPHEN 325 MG TABLET 650 MG PO (21:33)
[2024-06-14] MEDS: AZITHROMYCIN INJ 500 MG in SODIUM CHLORIDE 0.9% 250 ML 250 ML 250 MG IV (21:39)
[2024-06-15] VITALS (10 sets, daily range): BP systolic 124–184; BP diastolic 67–86; PULSE 54–80; RESP 14–25; TEMP 36.2–36.9; O2SAT 94–100; BMI 26.4; BMI 12.0
[2024-06-15] MEDS: CARBIDOPA/LEVODOPA 25/100 MG TABLET 1 TAB PO ×3 (05:43→21:20)
[2024-06-15] MEDS: LEVOTHYROXINE SODIUM 25 MCG TABLET PO (05:43)
[2024-06-15 07:11] LABS: Basophils % (Auto) 1 % (0-2.5); Eosinophils # (Auto) 0.3 Thou/mm3 (0.0-0.5); Eosinophils % (Auto) 5 % (0-10); Hematocrit 37.7 % (36.0-46.0); Hemoglobin 11.9 g/dL (12.0-16.0); Immature Granulocytes % (Auto) 0 % (0-0); Immature Granulocytes Auto 0.01 Thou/mm3 (0.00-0.00); Lymphocytes # (Auto) 1.7 Thou/mm3 (1.0-4.8); Lymphocytes % (Auto) 25 % (10-50); Mean Corpuscular HGB Conc 31.6 g/dl (31.0-37.0); Mean Corpuscular Hemoglobin 26.9 pg (25.0-35.0); Mean Corpuscular Volume 85 fL (80-100); Monocytes # (Auto) 0.4 Thou/mm3 (0.0-0.8); Monocytes % (Auto) 6 % (0-12); Neutrophils # (Auto) 4.4 Thou/mm3 (1.8-7.7); Neutrophils % (Auto) 64 % (37-80); Nucleated Red Blood Cell % 0 /100 WBC (0); Platelet Count 257 Thou/mm3 (140-440); RDW Standard Deviation 48.9 fL (36.4-46.3); Red Blood Count 4.42 Miln/mm3 (4.00-5.20); White Blood Count 6.8 Thou/mm3 (3.6-11.0)
[2024-06-15 07:48] LABS: Alanine Aminotransferase < 7 U/L (10-49); Albumin, Serum 3.7 gm/dL (3.4-4.8); Albumin/Globulin Ratio 1.5 (1.2-2.2); Alkaline Phosphatase 92 U/L (46-116); Anion Gap 6 (7-16); Aspartate Amino Transferase 29 U/L (0-34); BUN/Creatinine Ratio 14 Ratio (12-20); Bilirubin,Total 0.7 mg/dL (0.3-1.2); Blood Urea Nitrogen 7 mg/dL (9-23); Calcium 8.9 mg/dL (8.3-10.6); Calcium (Corrected) 9.1 mg/dL (8.5-10.1); Carbon Dioxide 28.6 mMol/L (20.0-31.0); Chloride 101 mMol/L (98-107); Creatinine (Component) 0.5 mg/dL (0.6-1.3); Estimated Creatinine Clearance 71.8 mL/min (>60); Globulin 2.5 gm/dL (2.3-3.5); Glucose 109 mg/dL (74-106); Magnesium 1.7 mg/dL (1.6-2.6); Osmolality,Calculated 270 (275-295); Phosphorous 2.3 mg/dL (2.4-5.1); Potassium 3.3 mMol/L (3.4-5.1); Sodium 136 mMol/L (136-145); Total Protein 6.2 gm/dL (5.7-8.2); eGFR > 60 See Note
--- NOTE | 2024-06-15 08:55 | PC.SS ---
Update: Plan is for the patient to discharge home with home health.
[2024-06-15] MEDS: POTASSIUM CHLORIDE 10% 20 MEQ/15 ML UDC 40 MEQ PO (09:09)
[2024-06-15] MEDS: PANTOPRAZOLE INJ 40 MG VIAL IV ×2 (09:09→20:33)
[2024-06-15] MEDS: POT PHOS 15 mMol in NS 250 ML 15 MMOL/250 ML BAG 62.5 MMOL IV (09:10)
[2024-06-15] MEDS: LOSARTAN POTASSIUM 25 MG TABLET 100 MG PO (09:10)
[2024-06-15] MEDS: amLODIPine BESYLATE 5 MG TABLET 10 MG PO (09:10)
[2024-06-15] MEDS: OXYBUTYNIN CHLOR 5 MG TABLET PO (09:10)
--- NOTE | 2024-06-15 12:33 | PD.RESDS ---
Planned Discharge Date 06/15/24 DS: Providers Provider Date of admission: 06/11/24 20:21 Primary care physician: HARRIET Coyle Admitting Provider: Anup Barney MD Attending Provider on Admission: Jose Daniel Manning MD Consults: 06/11/24 13:15 Consult to Cardiology Stat Comment: Bradycardia Consulting Provider: Yisel Chirinos 06/11/24 20:14 Consult to Gastroenterology Stat Comment: susp rectal bleed Consulting Provider: Yaron Villegas 06/11/24 22:54 [facility] Referral - Knowledge Deficit Routine Comment: Positive screening for knowledge deficit needs. 06/12/24 12:38 Referral Physical Therapy Routine Comment: Physician Instructions: Attending Provider on DC: Beba Sutherland MD Discharging Provider: Beba Sutherland MD Hospital Course Hospital Course Hospital course: Patient seen and examined at bedside. Patient had NG tube placed, receiving GoLytely through NG tube and. Patient receiving IV antibiotics for pneumonia, pending cultures Patient cleared by cardiology, bradycardia has resolved. Patient receiving medications through NG tube. Will continue amlodipine and losartan for hypertension. Will hold Seroquel for tonight, patient more somnolent compared to yesterday. Will continue to monitor patient Time Spent with Patient Time attestation: Total time spent providing and/or coordinating discharge services: Exam Vital Signs Temp Pulse Resp BP Pulse Ox O2 Del Method O2 Flow Rate 98.5 F 73 21 H 147/67 H 96 Nasal Cannula 2 06/15/24 08:00 06/15/24 09:44 06/15/24 09:44 06/15/24 09:10 06/15/24 09:44 06/15/24 08:00 06/15/24 09:44 Discharge Plan Plan Patient Disposition: Home w/HOME HEALTH Patient condition on transfer: Stable Prescriptions/Referrals Prescriptions/Med Rec: New amlodipine 10 mg tablet 10 mg PO QDAY Qty: 30 0RF amoxicillin-pot clavulanate 875-125 mg tablet 1 tab PO BID 4 Days Qty: 8 0RF Continued levothyroxine 25 mcg Tablet 25 mcg PO QAM carbidopa-levodopa 25-100 mg Tablet 1 tab PO TID quetiapine 25 mg tablet 25 mg PO HS Patient Comments: TOME THEO TABLETA POR V A ORAL AL ACOSTARSE oxybutynin chloride 5 mg tablet 5 mg PO QDAY Patient Comments: TOME THEO TABLETA POR V A ORAL TODOS LOS D atorvastatin 80 mg tablet 80 mg PO HS Patient Comments: TOME 1 TABLETA POR V A ORAL TODOS LOS D AL ACOSTARSE hydrocodone-acetaminophen 5-325 mg tablet 1 tab PO BID PRN (Reason: pain) Patient Comments: TOME 1 TABLETA POR V A ORAL DOS VECES AL D A CUANDO SEA NECESARIO PARA EL DOLOR sertraline 50 mg tablet 50 mg PO QDAY Patient Comments: TOME THEO TABLETA POR V A ORAL TODOS LOS D Eliquis 5 mg tablet 5 mg PO QDAY Patient Comments: TOME 1 TABLETA POR V A ORAL TODOS LOS D losartan 100 mg tablet 100 mg PO QDAY Patient Comments: TOME THEO TABLETA POR V A ORAL TODOS LOS D Held trazodone 100 mg Tablet 100 mg PO HS PRN (Reason: Insomnia) Hold Instructions: Resume on 06/22/24. Follow up with PCP Discontinued tramadol 50 mg Tablet 50 mg PO BID PRN (Reason: Pain) loratadine 10 mg Tablet 10 mg PO QDAY PRN (Reason: allergies) baclofen 5 mg Tablet 5 mg PO BID PRN (Reason: Pain) sertraline 150 mg Capsule 150 mg PO QDAY metoprolol tartrate 25 mg tablet 12.5 mg PO QDAY Patient Comments: TAKE HALF A TAB (12.5MG) BY MOUTH DAILY Referrals: Sheri Jiang FNP-C [Primary Care Provider] - Yisel Chirinos MD [Physician] - Patient/Caregiver Discharge Instructions Discharge Activity: as per physical therapy Other Discharge Activity Instructions:: Stop metoprolol, as it causes your heart rate to drop. Take amlodipine and losartan for blood pressure management. Follow-up with cardiology in 1 week. Take high-fiber diet or use [id number] fiber follow-up with primary care physician for hemorrhoids. Maintain adequate hydration. Take Augmentin for 4 more days, follow-up with primary care physician after completing antibiotic treatment. Continue all other medications as below. Hold trazodone, follow-up with PCP. Follow-up with primary care physician in 1 week, return to emergency department if symptoms worsen Education Materials: Your Heart's Electrical System, Preventing Pneumonia, Treating Pneumonia, Understanding Rectal Bleeding, Understanding Bradycardia Print Language: Tajik Stand Alone Forms: Marisabel Award Info., Patient Portal Info Letter Discharge Order Discharge Orders: Discharge (Routine); Ordered 06/15/24 Ordered By: Beba Sutherland
--- NOTE | 2024-06-15 13:42 | PD.IMPROG ---
Documentation for date of: 06/15/24 Subjective Subjective Interval history: Patient evaluated Underwent fiberoptic colonoscopy with banding of the internal hemorrhoids 3 bands were put in Hemoglobin hematocrit 11.9 and 37.7 Exam Vital Signs Temp Pulse Resp BP Pulse Ox O2 Del Method O2 Flow Rate 98.2 F 64 14 156/74 H 100 Nasal Cannula 2 06/15/24 12:00 06/15/24 12:00 06/15/24 12:00 06/15/24 12:00 06/15/24 12:00 06/15/24 12:00 06/15/24 12:00 Objective Labs 06/15/24 06:10 06/15/24 06:10 Labs: Laboratory Results - last 24 hr 06/15/24 06:10 WBC 6.8 RBC 4.42 Hgb 11.9 L Hct 37.7 MCV 85 MCH 26.9 MCHC 31.6 RDW Std Deviation 48.9 H Plt Count 257 D Neut % (Auto) 64 Lymph % (Auto) 25 [place] % (Auto) 6 Eos % (Auto) 5 Baso % (Auto) 1 Neut # (Auto) 4.4 Lymph # (Auto) 1.7 [place] # (Auto) 0.4 Eos # (Auto) 0.3 Baso # (Auto) 0.0 Immature Gran # (Auto) 0.01 H Absolute Nucleated RBC 0.00 Immature Gran % 0 Nucleated RBC % 0 Sodium 136 Potassium 3.3 L Chloride 101 Carbon Dioxide 28.6 Anion Gap 6 L BUN 7 L Creatinine 0.5 L Estim Creat Clear Calc 71.8 eGFR > 60 BUN/Creatinine Ratio 14 Glucose 109 H Calculated Osmolality 270 L Calcium 8.9 Corrected Calcium 9.1 Phosphorus 2.3 L Magnesium 1.7 Total Bilirubin 0.7 AST 29 ALT < 7 L Alkaline Phosphatase 92 Total Protein 6.2 Albumin 3.7 Globulin 2.5 Albumin/Globulin Ratio 1.5 Impressions Impression: Hematochezia requiring band ligation of the internal hemorrhoids Continue current management Upon discharge patient can be followed by the PCP no need for GI follow-up Assessment & Plan A&P Narrative Rectal bleeding ongoing for 1 week although hemoglobin hematocrit reasonably stable That is the major complaint the patient was brought into the hospital with by her daughter Plan 12 [place] NGT GoLytely 400 cc an hour via the NGT Keep the head of the patient supine at 60 degrees If 1 gallon of GoLytely start making the patient clears to start the second gallon Consent will be obtained from the daughter for fiberoptic colonoscopy with possible therapeutic intervention under intravenous moderate sedation possible biopsy Other medical problems include Dementia Parkinson's disease On Eliquis for unspecified reasons Hypothyroidism Osteoporosis 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
--- NOTE | 2024-06-15 14:09 | PC.NURSE ---
Patient's O2 at RA at rest sustained 80%, MD made aware, patient placed on 2L nc.
[2024-06-15] MEDS: cefTRIAXone/D5w 1gm IV premix 1 GM/50 ML BAG IV (14:33)
--- NOTE | 2024-06-15 14:40 | PC.SS ---
Oxygen Pt is discharged in a chronic stable state and has been treated optimally and has other respiratory needs. Oxygen has been ordered due to Pneumonia.?
--- NOTE | 2024-06-15 16:12 | PC.SS ---
Oxygen referral submitted on [facility]. Responses are pending.
--- NOTE | 2024-06-15 18:59 | PD.RESPRO ---
Documentation for date of: 06/15/24 Subjective Subjective Interval history: Patient is status post colonoscopy, was found to have hemorrhoids which were banded by street car mechanic yesterday. Eliquis resumed Patient was initially stable for discharge, discharge being held as patient lives with who is wheelchair-bound, patient's daughter and granddaughters feels unsafe about discharging patient home with home health. Case will be discussed with social workers in the a.m., discharge was held. Exam Vital Signs Temp Pulse Resp BP Pulse Ox O2 Del Method O2 Flow Rate 97.3 F 80 25 H 152/79 H 99 Nasal Cannula 2 06/15/24 16:00 06/15/24 16:00 06/15/24 16:00 06/15/24 16:00 06/15/24 16:00 06/15/24 16:00 06/15/24 16:00 Narrative Exam Physical Exam General: Elderly female, awake and in no acute distress, non-toxic appearing. Unable to hear, but vocalizing in Turkish. Answers simple questions written on paper. HEENT: Normocephalic, atraumatic, mucous membranes moist. On 2L NC. Heart: RRR, normal S1 and S2, no murmurs. Lungs: Clear to auscultation with no wheezing or crackles. Abdomen: Soft, nondistended, tenderness to palpation right abdomen however refusing further examination. Neurologic: Oriented to self and person, no gross neurological deficit, and patient able to move all 4 extremities. Extremities: No edema. Skin: No rash or ecchymoses. Objective Labs 06/15/24 06:10 06/15/24 06:10 Labs: Laboratory Results - last 24 hr 06/15/24 06:10 WBC 6.8 RBC 4.42 Hgb 11.9 L Hct 37.7 MCV 85 MCH 26.9 MCHC 31.6 RDW Std Deviation 48.9 H Plt Count 257 D Neut % (Auto) 64 Lymph % (Auto) 25 [place] % (Auto) 6 Eos % (Auto) 5 Baso % (Auto) 1 Neut # (Auto) 4.4 Lymph # (Auto) 1.7 [place] # (Auto) 0.4 Eos # (Auto) 0.3 Baso # (Auto) 0.0 Immature Gran # (Auto) 0.01 H Absolute Nucleated RBC 0.00 Immature Gran % 0 Nucleated RBC % 0 Sodium 136 Potassium 3.3 L Chloride 101 Carbon Dioxide 28.6 Anion Gap 6 L BUN 7 L Creatinine 0.5 L Estim Creat Clear Calc 71.8 eGFR > 60 BUN/Creatinine Ratio 14 Glucose 109 H Calculated Osmolality 270 L Calcium 8.9 Corrected Calcium 9.1 Phosphorus 2.3 L Magnesium 1.7 Total Bilirubin 0.7 AST 29 ALT < 7 L Alkaline Phosphatase 92 Total Protein 6.2 Albumin 3.7 Globulin 2.5 Albumin/Globulin Ratio 1.5 Quality Measures Quality Measures VTE prophylaxis (SCDs) Advance care planning discussed with:: patient and child Assessment & Plan Assessment Current Active Medications: Generic Name Dose Route Start Last Admin Trade Name Freq PRN Reason Stop Dose Admin Acetaminophen 650 mg 06/11/24 20:08 06/14/24 21:33 Acetaminophen 325 Mg Tablet PO 07/11/24 20:07 650 mg Q6H PRN Administration Fever >100.3 or pain 1-3 Albuterol/Ipratropium 3 ml 06/11/24 20:08 Albuterol/Ipratropium (Duoneb) Rt Arcelia 3 Ml Nebu INH 07/11/24 20:07 Q2HR PRN SHORTNESS OF BREATH OR WHEEZE Amlodipine Besylate 10 mg 06/15/24 09:00 06/15/24 09:10 Amlodipine Besylate 5 Mg Tablet PO 07/15/24 08:59 10 mg QDAY MOE Administration Atorvastatin Calcium 80 mg 06/12/24 21:00 06/14/24 21:28 Atorvastatin Calcium 20 Mg Tablet PO 07/12/24 20:59 80 mg HS MOE Administration Carbidopa/Levodopa 1 tab 06/11/24 22:00 06/15/24 14:33 Carbidopa/Levodopa 25/100 Mg Tablet PO 07/11/24 21:59 1 tab TID MOE Administration Hydralazine HCl 10 mg 06/12/24 15:19 06/13/24 16:06 Hydralazine Inj 20 Mg/Ml Vial IV 07/12/24 15:18 10 mg Q6H PRN Administration SBP > 180 & DBP > 100 Hydroxyzine HCl 50 mg 06/12/24 12:39 06/12/24 21:10 Hydroxyzine Hcl 25 Mg Tablet PO 07/12/24 12:44 50 mg BID PRN Administration ANXIETY Azithromycin 500 mg/ Sodium 250 mls @ 250 mls/hr 06/12/24 21:00 06/14/24 21:39 Chloride IV 06/19/24 20:59 250 mls/hr HS MOE Administration Ceftriaxone Sodium/Dextrose 1 gm in 50 mls @ 100 mls/hr 06/12/24 14:00 06/15/24 14:33 Rocephin/D5w 1gm Iv Premix IV 06/19/24 13:59 100 mls/hr QDAY@1400 MOE Administration Levothyroxine Sodium 25 mcg 06/12/24 06:00 06/15/24 05:43 Levothyroxine Sodium 25 Mcg Tablet PO 07/12/24 05:59 25 mcg ACBR MOE Administration Losartan Potassium 100 mg 06/12/24 15:15 06/15/24 09:10 Losartan Potassium 25 Mg Tablet PO 07/12/24 15:14 100 mg QDAY MOE Administration Ondansetron HCl 4 mg 06/11/24 20:08 06/12/24 21:11 Ondansetron Inj 2 Mg/Ml Inj 2 Ml IV 07/11/24 20:07 4 mg Q6H PRN Administration NAUSEA OR VOMITING Protocol Oxybutynin Chloride 5 mg 06/13/24 09:00 06/15/24 09:10 Oxybutynin Chlor 5 Mg Tablet PO 07/13/24 08:59 5 mg QDAY MOE Administration Pantoprazole Sodium 40 mg 06/12/24 12:45 06/15/24 09:09 Pantoprazole Inj 40 Mg Vial IV 07/12/24 12:44 40 mg BID MOE Administration Pharmacy Consult 1 each 06/11/24 22:38 Pharmacy To Consult Patient XX 07/11/24 22:37 PRN PRN CONSULT Pharmacy Consult 1 each 06/11/24 22:38 Pharmacy To Consult Pneumovacc XX 07/11/24 22:37 PRN PRN CONSULT Quetiapine Fumarate 25 mg 06/12/24 21:00 06/13/24 20:48 Quetiapine Fumarate 25 Mg Tablet PO 07/12/24 20:59 25 mg HS MOE Administration Sennosides 1 tab 06/11/24 20:08 Senna Tablet PO 07/11/24 20:07 QDAY PRN constipation Protocol Sertraline HCl 50 mg 06/11/24 21:00 06/14/24 21:28 Sertraline Hcl 25 Mg Tablet PO 07/11/24 20:59 50 mg HS MOE Administration Plan The patient is a 89 year old female with previous medical history of right acoustic neurinoma, Parkinson's disease, hypothyroidism, hypertension, hyperlipidemia, gastritis, osteoporosis, and dementia who was brought to the ED on 06/11/2024 due to abdominal pain, bright red blood in her stool. Her daughter at the bedside, reports that a few days ago patient started to have abdominal pain, bright red blood in the stool, general weakness, loss of appetite. Patient is going to be admitted for severe bradycardia and community-acquired pneumonia. # Hemorrhoids status post banding #Diverticulosis #Lower GI bleed Patient's daughter reports that patient has been having bright red stools in the last few days has been reporting abdominal pain. On examination there is tenderness in the lower abdomen. CT abdomen pelvis was negative for acute pathology. Could be due hemorrhoidal bleeding. Patient has NG tube intact Plan: - Status post banding, continue to monitor. #Community-acquired pneumonia According to the daughter, patient has been having productive cough for a few days. CXR positive for early bibasilar pneumonia. Plan: ? Ceftriaxone 1 g daily ? Azithromycin 500 mg daily ? Oxygen supplementation as needed - Follow-up blood cultures, sputum culture #Severe bradycardia, resolved #Atrial fibrillation, rate controlled Bradycardia was recorded at the PCP office and patient was sent to the ED, due to cognitive deficit it is hard to say if the patient experiences the symptoms. According to the ED personnel, patient had an episode of syncope. At this time pacing and pacemaker is not indicated as the patient is not symptomatic from the bradycardia. Patient has good chronotropic response and bradycardia has resolved. TSH 0.98, within normal limits Plan: ? Hold home metoprolol per cardiology recommendations ? Eliquis resumed ? Continue telemetry monitoring - cardiology is consulted, appreciate recommendations #History of Parkinson's disease Plan: ?Continue home carbidopa-levodopa #History of dementia #History of depression Plan: - Resumed home sertraline 50 mg p.o. daily and quetiapine 25 mg at bedtime - Patient is anxious, started on hydroxyzine as needed #History of hypertension Patient on losartan 100 mg and metoprolol tartrate 12.5 mg p.o. daily at home Patient received hydralazine as needed for hypertension - Resume home dose losartan 100mg daily - Continue amlodipine 5mg daily - As needed hydralazine 10 mg for SBP/DBP greater than 180/100 - Monitor blood pressure, optimize therapy as needed #Hypothyroidism TSH 0.98, resume levothyroxine 25 mg ACBR #Electrolyte imbalance #Hypokalemia #Hypophosphatemia Correct and replace electrolytes as needed Health maintenance: FEN: Cardiac diet DVT prophylaxis: Eliquis GI prophylaxis: Protonix twice daily Dispo: telemetry CODE STATUS: DNR (according to the family, they want to let her pass peacefully in the event of cardiac arrest) Case discussed with Attending Dr. Nigel Sutherland PGY1 Disclaimer: This note was dictated by speech recognition. Minor errors in pharm tech may be present due to voice recognition software. Attending Provider Attestation/Addendum Patient's status post colonoscopy. Study showed hemorrhoids. Patient has no further drop in hemoglobin. She has poor appetite according to her daughter. Patient will need supplemental nutrition. Will need follow-up in the clinic.
--- NOTE | 2024-06-15 19:23 | PC.NURSE ---
Per Dr. Sutherland, Unsafe to discharge patient home. Will discuss options following day with family.
[2024-06-15] MEDS: ATORVASTATIN CALCIUM 20 MG TABLET 80 MG PO (20:32)
[2024-06-15] MEDS: SERTRALINE HCL 25 MG TABLET 50 MG PO (20:32)
[2024-06-15] MEDS: AZITHROMYCIN INJ 500 MG in SODIUM CHLORIDE 0.9% 250 ML 250 ML 250 MG IV (20:33)
[2024-06-15] MEDS: APIXABAN 2.5 MG TABLET 5 MG PO (20:33)
[2024-06-15] MEDS: hydrALAZINE INJ 20 MG/ML VIAL 10 MG IV (20:34)
[2024-06-15] MEDS: ACETAMINOPHEN 325 MG TABLET 650 MG PO (21:20)
[2024-06-16] VITALS (7 sets, daily range): BP systolic 128–173; BP diastolic 67–81; PULSE 71–86; RESP 16–21; TEMP 36.2–37.1; O2SAT 97–100
[2024-06-16] MEDS: CARBIDOPA/LEVODOPA 25/100 MG TABLET 1 TAB PO (05:27)
[2024-06-16] MEDS: LEVOTHYROXINE SODIUM 25 MCG TABLET PO (05:27)
[2024-06-16] MEDS: LOSARTAN POTASSIUM 25 MG TABLET 100 MG PO (08:13)
[2024-06-16] MEDS: amLODIPine BESYLATE 5 MG TABLET 10 MG PO (08:15)
[2024-06-16] MEDS: APIXABAN 2.5 MG TABLET 5 MG PO (08:17)
[2024-06-16] MEDS: OXYBUTYNIN CHLOR 5 MG TABLET PO (08:17)
[2024-06-16] MEDS: PANTOPRAZOLE INJ 40 MG VIAL IV (08:20)
--- NOTE | 2024-06-16 13:33 | ESDS_ITS ---
Planned Discharge Date 06/16/24 DS: Providers Provider Date of admission: 06/11/24 20:21 Primary care physician: HARRIET Coyle Admitting Provider: Anup Barney MD Attending Provider on Admission: Jose Daniel Manning MD Consults: 06/11/24 13:15 Consult to Cardiology Stat Comment: Bradycardia Consulting Provider: Yisel Chirinos 06/11/24 20:14 Consult to Gastroenterology Stat Comment: susp rectal bleed Consulting Provider: Yaron Villegas 06/11/24 22:54 Health [facility] Referral - Knowledge Deficit Routine Comment: Positive screening for knowledge deficit needs. 06/12/24 12:38 Referral Physical Therapy Routine Comment: Physician Instructions: Attending Provider on DC: Jose Daniel Manning MD Discharging Provider: Jose Daniel Manning MD Anticipated date of discharge: 06/16/24 DS: Diagnosis Problem List Completed Was Problem List Reviewed/Reconciled?: Yes Hospital Course Hospital Course Hospital course: Hospital course: Mr. Kim is a 89-year-old female with past medical history right acoustic neurinoma, Parkinson's disease, hypothyroidism, hypertension, hyperlipidemia, gastritis, osteoporosis, and dementia who was brought to the ED on 06/11/2024 due to abdominal pain, bright red blood in her stool. Patient was initially found to be bradycardic in the emergency department, cardiology was consulted, cardiology recommended holding patient's home dose metoprolol with which bradycardia improved. Otherwise for patient's symptoms of bright red blood in stool, gastroenterology was consulted patient had a colonoscopy done after 2 days of prep with GoLytely via NG tube, was found to have moderate diverticulosis, internal hemorrhoids which were banded. For patient's pneumonia she was started on IV antibiotics, patient required supplemental oxygen, patient condition improved with IV antibiotics, was eventually weaned off to lower oxygen requirements and will be discharged on 2 L oxygen, patient to follow-up with PCP and eventually wean off of oxygen as tolerated. Patient will be discharged on p.o. antibiotics, patient to continue all other home medications for Parkinson's dementia hypothyroidism and depression. Patient's started on amlodipine for blood pressure management, improve blood pressure control noted. Patient will be discharged on Eliquis for history of atrial fibrillation and elevated [id number]. Patient will be discharged on Eliquis 5 mg twice daily, weight is greater than 60, creatinine is less than 1.5. Patient is stable for discharge, patient responded well to hospital treatment. Discharge diagnosis: #Hemorrhoids status post banding #Diverticulosis #Lower GI bleed #Community-acquired pneumonia #Severe bradycardia, resolved #Atrial fibrillation, rate controlled #History of Parkinson's disease #History of dementia #History of depression #History of hypertension #Hypothyroidism #Electrolyte imbalance #Hypokalemia #Hypophosphatemia Case discussed with Attending Dr. Manning. Beba Sutherland PGY1 Disclaimer: This note was dictated by speech recognition. Minor errors in permanent mold supervisor may be present due to voice recognition software. Time Spent with Patient Time attestation: Total time spent providing and/or coordinating discharge services: Time spent: Greater than 30 minutes Home Health Home Health Referral Orders: 06/15/24 14:05 Home Health Referral 2 X WEEKLY Reason For Exam: GI bleed, AFIB Home-Bound The patient must either because of illness or injury, need the aid of supportive devices such as crutches, canes, wheelchairs, and walkers; the use of special transportation; or the assistance of another person in order to leave their place of residence; OR have a condition such that leaving his or her home is medically contraindicated. In addition, the patient also meets the following criteria: patient is normally unable to leave the home and leaving home requires considerable taxing effort. Addendum to Home Health Certification Practitioner's Certification: I certify that the patient has been under my care in the hospital and the care of attending physician (see below). We had a [id number] encounter on (see date below). My clinical findings indicate that the patient is home bound per the above criteria and the Home Health Services noted in these orders are medically necessary. The primary reason for the [id number] encounter is related to the fact that the patient requires home health services. Date Certifying [id number] Physician Encounter: 06/15/24 Physician's Name who will Assume Oversight for Services: Sheri Jiang Physician's Phone No.who will Assume Oversight for Service[place] [facility] [place] Resources: Yes PT to Evaluate: Yes PT to evaluate and provide a treatmnet plan to increase patient's mobility and strength. Wound Care: No IV Therapy: No Discontinue PICC Line Once Treatment Complete: No RN Safety Evaluation: Yes RN to evaluate and create a plan of care that will produce positive outcomes. Palliative Treatment: No Palliative treatment and evaluate the need for hospice. Home Health Aide - Personal Care: No Home Health Aide to assist with any ADL's. Exam Vital Signs Temp Pulse Resp BP Pulse Ox O2 Del Method O2 Flow Rate 97.3 F 86 20 148/74 H 100 Nasal Cannula 3 06/16/24 12:00 06/16/24 12:00 06/16/24 12:00 06/16/24 12:00 06/16/24 12:00 06/16/24 12:00 06/16/24 12:00 Narrative Exam Physical Exam General: Elderly female, awake and in no acute distress, non-toxic appearing. Unable to hear, but vocalizing in Malian. Answers simple questions written on paper. HEENT: Normocephalic, atraumatic, mucous membranes moist. On 2L NC. Heart: RRR, normal S1 and S2, no murmurs. Lungs: Clear to auscultation with no wheezing or crackles. Abdomen: Soft, nondistended, tenderness to palpation right abdomen however refusing further examination. Neurologic: Oriented to self and person, no gross neurological deficit, and patient able to move all 4 extremities. Extremities: No edema. Skin: No rash or ecchymoses. Discharge Plan Plan Patient Disposition: Home w/HOME HEALTH Patient condition on transfer: Stable Care Plan Goals: Stop metoprolol, as it causes your heart rate to drop. Take amlodipine and losartan for blood pressure management. Follow-up with cardiology in 1 week. Take high-fiber diet or use [id number] fiber follow-up with primary care physician for hemorrhoids. Maintain adequate hydration. Take Augmentin for 3 more days, follow-up with primary care physician after completing antibiotic treatment. Continue all other medications as below. Hold trazodone, follow-up with PCP. Follow-up with primary care physician in 1 week, return to emergency department if symptoms worsen Prescriptions/Referrals Prescriptions/Med Rec: New amoxicillin-pot clavulanate 875-125 mg tablet 1 tab PO BID 3 Days Qty: 6 0RF amlodipine 10 mg tablet 10 mg PO QDAY 30 Days Qty: 30 3RF Continued levothyroxine 25 mcg Tablet 25 mcg PO QAM carbidopa-levodopa 25-100 mg Tablet 1 tab PO TID quetiapine 25 mg tablet 25 mg PO HS Patient Comments: TOME THEO TABLETA POR V A ORAL AL ACOSTARSE oxybutynin chloride 5 mg tablet 5 mg PO QDAY Patient Comments: TOME THEO TABLETA POR V A ORAL TODOS LOS D atorvastatin 80 mg tablet 80 mg PO HS Patient Comments: TOME 1 TABLETA POR V A ORAL TODOS LOS D AL ACOSTARSE hydrocodone-acetaminophen 5-325 mg tablet 1 tab PO BID PRN (Reason: pain) Patient Comments: TOME 1 TABLETA POR V A ORAL DOS VECES AL D A CUANDO SEA NECESARIO PARA EL DOLOR sertraline 50 mg tablet 50 mg PO QDAY Patient Comments: TOME THEO TABLETA POR V A ORAL TODOS LOS D Eliquis 5 mg tablet 5 mg PO QDAY Patient Comments: TOME 1 TABLETA POR V A ORAL TODOS LOS D losartan 100 mg tablet 100 mg PO QDAY Patient Comments: TOME THEO TABLETA POR V A ORAL TODOS LOS D Held trazodone 100 mg Tablet 100 mg PO HS PRN (Reason: Insomnia) Hold Instructions: Resume on 06/22/24. Follow up with PCP Discontinued tramadol 50 mg Tablet 50 mg PO BID PRN (Reason: Pain) loratadine 10 mg Tablet 10 mg PO QDAY PRN (Reason: allergies) baclofen 5 mg Tablet 5 mg PO BID PRN (Reason: Pain) sertraline 150 mg Capsule 150 mg PO QDAY metoprolol tartrate 25 mg tablet 12.5 mg PO QDAY Patient Comments: TAKE HALF A TAB (12.5MG) BY MOUTH DAILY Referrals: Sheri Jiang FNP-C [Primary Care Provider] - Yisel Chirinos MD [Physician] - Patient/Caregiver Discharge Instructions Discharge Activity: as per physical therapy Other Discharge Activity Instructions:: Stop metoprolol, as it causes your heart rate to drop. Take amlodipine and losartan for blood pressure management. Follow-up with cardiology in 1 week. Take high-fiber diet or use [id number] fiber follow-up with primary care physician for hemorrhoids. Maintain adequate hydration. Take Augmentin for 3 more days, follow-up with primary care physician after completing antibiotic treatment. Continue all other medications as below. Hold trazodone, follow-up with PCP. Follow-up with primary care physician in 1 week, return to emergency department if symptoms worsen Education Materials: Your Heart's Electrical System, Preventing Pneumonia, Treating Pneumonia, Understanding Rectal Bleeding, Understanding Bradycardia Print Language: Malian Stand Alone Forms: Marisabel Award Info., Patient Portal Info Letter Discharge Order Discharge Orders: Discharge (Routine); Ordered 06/16/24 Ordered By: Beba Sutherland Quality Discharge Quality Measures VTE prophylaxis Attestestation Attestation I discussed with and supervised the resident physician who took care of this patient. I agree with the assessment and discharge plan as above.
--- NOTE | 2024-06-17 10:06 | PC.CM ---
Patient accepted by [facility]. Start of care 06/19.
== END 2024-06-16 14:40 | disposition home health service (06) | DRG 987 ==
LOC: SERX 18:04 → SERHOLD 20:23 → S2NX 22:29 → S3SX 06-16 00:45
PROVIDERS: Specialist; Admitting Provider Student in an Organized Health Care Education/Training Program; Emergency Provider Family Medicine; Visit Provider Internal Medicine
PROC: 0DJD8ZZ Inspection of Lower Intestinal Tract, Via Natural or Artificial Opening Endoscopic (ICD-10-PCS; CPT 45378; principal; 2024-06-14 19:30)
DX: R00.1 Bradycardia, unspecified (principal); J18.9 Pneumonia, unspecified organism; K57.31 Diverticulosis of large intestine without perforation or abscess with bleeding; K64.3 Fourth degree hemorrhoids; I48.20 Chronic atrial fibrillation, unspecified; M81.0 Age-related osteoporosis without current pathological fracture; I10 Essential (primary) hypertension; F02.80 Dementia in other diseases classified elsewhere, unspecified severity, without behavioral disturbance, psychotic disturbance, mood disturbance, and anxiety; G20.A1 Parkinson's disease without dyskinesia, without mention of fluctuations; E03.9 Hypothyroidism, unspecified; H91.90 Unspecified hearing loss, unspecified ear; F32.A Depression, unspecified; E78.5 Hyperlipidemia, unspecified; D64.9 Anemia, unspecified; E83.39 Other disorders of phosphorus metabolism; E87.6 Hypokalemia; K64.4 Residual hemorrhoidal skin tags; D33.3 Benign neoplasm of cranial nerves; R09.02 Hypoxemia; Z79.01 Long term (current) use of anticoagulants; Z66 Do not resuscitate; Z79.899 Other long term (current) drug therapy
CPT/HCPCS: 36415; 36600; 71045; 74176; 80053; 82270; 82803; 83735; 83880; 84100; 84443; 84484; 85025; 85610; 85730; 87040; 87502; 87811; 90677; 93005; 94640; 96365; 96367; 97162; 99285; A4217; A4649; A9270; J0131; J0360; J0456; J0696; J2250; J2405; J2470; J3010; J3475; J7030; J7050; J7999

== ENCOUNTER → 2024-07-11 | Outpatient (CLI) | payer MEDICARE, MEDICAID, SELFPAY ==
[2024-07-11 10:17] LABS: Basophils % (Auto) 1 % (0-2.5); Eosinophils # (Auto) 0.2 Thou/mm3 (0.0-0.5); Eosinophils % (Auto) 3 % (0-10); Hematocrit 37.4 % (36.0-46.0); Hemoglobin 11.9 g/dL (12.0-16.0); Immature Granulocytes % (Auto) 0 % (0-0); Immature Granulocytes Auto 0.01 Thou/mm3 (0.00-0.00); Lymphocytes # (Auto) 1.7 Thou/mm3 (1.0-4.8); Lymphocytes % (Auto) 39 % (10-50); Mean Corpuscular HGB Conc 31.8 g/dl (31.0-37.0); Mean Corpuscular Hemoglobin 28.1 pg (25.0-35.0); Mean Corpuscular Volume 88 fL (80-100); Monocytes # (Auto) 0.3 Thou/mm3 (0.0-0.8); Monocytes % (Auto) 6 % (0-12); Neutrophils # (Auto) 2.3 Thou/mm3 (1.8-7.7); Neutrophils % (Auto) 51 % (37-80); Nucleated Red Blood Cell % 0 /100 WBC (0); Platelet Count 160 Thou/mm3 (140-440); RDW Standard Deviation 53.1 fL (36.4-46.3); Red Blood Count 4.23 Miln/mm3 (4.00-5.20); White Blood Count 4.4 Thou/mm3 (3.6-11.0)
[2024-07-11 10:42] LABS: Alanine Aminotransferase 15 U/L (10-49); Albumin, Serum 3.5 gm/dL (3.4-4.8); Alkaline Phosphatase 116 U/L (46-116); Anion Gap 8 (7-16); Aspartate Amino Transferase 33 U/L (0-34); BUN/Creatinine Ratio 15 Ratio (12-20); Bilirubin,Direct 0.2 mg/dL (0.0-0.3); Bilirubin,Total 0.5 mg/dL (0.3-1.2); Blood Urea Nitrogen 9 mg/dL (9-23); Calcium 8.8 mg/dL (8.3-10.6); Carbon Dioxide 28.6 mMol/L (20.0-31.0); Cardiac Risk Estimate 2.5 RATIO (3.7-5.6); Chloride 105 mMol/L (98-107); Cholesterol 96 mg/dL (132-200); Creatinine (Component) 0.6 mg/dL (0.6-1.3); Free T4 (Free Thyroxine) 1.29 ng/dL (0.89-1.76); Glucose 111 mg/dL (74-106); HDL Cholesterol 38 mg/dL (40-60); LDL Cholesterol,Calculated 34 mg/dL (0-130); Osmolality,Calculated 282 (275-295); Potassium 3.9 mMol/L (3.4-5.1); Sodium 142 mMol/L (136-145); Thyroid Stimulating Hormone 2.52 uIU/mL (0.55-4.78); Total Protein 5.8 gm/dL (5.7-8.2); Triglycerides 120 mg/dL (30-150); eGFR > 60 See Note
== END | disposition home or self-care (01) ==
LOC: SLDO 09:11
PROVIDERS: Referring Provider Internal Medicine Cardiovascular Disease; Visit Provider Internal Medicine Cardiovascular Disease
DX: I10 Essential (primary) hypertension (principal); E78.5 Hyperlipidemia, unspecified; I49.9 Cardiac arrhythmia, unspecified
CPT/HCPCS: 36415; 80048; 80061; 80076; 84439; 84443; 85025